=== PATIENT | female | born 1985 | race Caucasian/White ===

== ENCOUNTER 2017-03-11 21:06 | Emergency (ER) | payer OTHER ==
[2017-03-11] MEDS ORDERED: KETOROLAC 30 MG/ML 1 ML VIAL IVP STA (21:52)
[2017-03-11] MEDS ORDERED: ONDANSETRON 4 MG/2 ML VIAL IVP STA (21:53)
[2017-03-11] MEDS ORDERED: SODIUM CHLORIDE 0.9% 1,000 ML IV ONE (21:53)
--- NOTE | 2017-03-11 21:56 | ED ---
Abdominal Pain HPI - General Chief Complaint: Abdominal Pain Stated Complaint: poss kidney infection Time Seen by Provider: 03/11/17 21:40 Source: patient, RN notes reviewed Mode of arrival: ambulatory Limitations: no limitations - History of Present Illness Initial Comments: Patient is a 31-year-old female presents to the emergency room for evaluation of right-sided flank pain. Patient states the pain began earlier today. Patient states the pain is worse with movement. Patient states she's afraid she has a kidney infection. Patient denies history of kidney infection. Patient states she has a family history of kidney stones. Patient denies any personal history of kidney stones. Patient states she nauseas but denies vomiting. Patient denies any pain or burning during urination, trouble urinating or blood in urine. Patient denies fevers or chills. Patient denies headache or dizziness. Patient denies abdominal pain. Patient states she has a history of 2 sections. Patient denies any recent trauma to her back or back injury. Patient denies saddle anesthesia. Patient denies urine or fecal incontinence. Patient denies paresthesias. - Related Data Home Medications Medication Instructions Recorded Confirmed Artificial Tears-Hypromellose 1 drops BOTH EYES TID PRN 03/11/17 03/11/17 [Artificial Tear Drops] Ibuprofen [Motrin] 200 - 400 mg PO Q6HR PRN 03/11/17 03/11/17 Icy Hot Rub 1 applic TOPICAL DAILY PRN 03/11/17 03/11/17 Multivitamins, Thera [Multivitamin 1 tab PO DAILY 03/11/17 03/11/17 (formulary)] Vitamin B Complex 1 cap PO DAILY 03/11/17 03/11/17 Previous Rx's Medication Instructions Recorded Ibuprofen [Motrin] 600 mg PO Q6HR PRN #20 tab 03/12/17 Ondansetron Odt [Zofran Odt] 4 mg PO Q8HR PRN #12 tab 03/12/17 Allergies Allergy/AdvReac Type Severity Reaction Status Date / Time No Known Allergies Allergy Verified 03/11/17 22:07 Review of Systems ROS Statement: Those systems with pertinent positive or pertinent negative responses have been documented in the HPI. ROS Other: All systems not noted in ROS Statement are negative. Past Medical History Past Medical History: No Reported History History of Any Multi-Drug Resistant Organisms: None Reported Past Surgical History: Section Past Psychological History: ADD/ADHD Smoking Status: Current every day smoker Past Alcohol Use History: None Reported Past Drug Use History: None Reported General Exam - General Exam Comments Initial Comments: laying in exam room, no distress. Limitations: no limitations General appearance: alert, in no apparent distress Head exam: Present: atraumatic, normocephalic, normal inspection Eye exam: Present: normal appearance ENT exam: Present: normal exam Neck exam: Present: normal inspection Respiratory exam: Present: normal lung sounds bilaterally. Absent: respiratory distress Cardiovascular Exam: Present: regular rate, normal rhythm, normal heart sounds GI/Abdominal exam: Present: soft, normal bowel sounds. Absent: distended, tenderness, guarding, rebound, rigid Extremities exam: Present: normal inspection Back exam: Present: normal inspection, CVA tenderness (R). Absent: CVA tenderness (L) Neurological exam: Present: alert, oriented X3, CN II-XII intact, normal gait Psychiatric exam: Present: normal affect, normal mood Skin exam: Present: warm, dry, intact, normal color. Absent: rash Course Vital Signs 03/11/17 03/12/17 21:07 00:00 Temperature 99.2 F 98.2 F Pulse Rate 87 70 Respiratory 18 16 Rate Blood Pressure 141/79 116/50 O2 Sat by Pulse 100 Oximetry Medical Decision Making - Medical Decision Making patient is a 31-year-old female presents emergency room for evaluation of right- sided flank pain. Labs show no concerning findings. Urinalysis shows no concerning findings. KUB x-ray significant for nonspecific small 1 cm T-shaped metallic foreign body overlying the right lower quadrant. CT abdomen/pelvis ordered since patient still complaining of significant pain. CT abdomen/pelvis noted a small 1 cm pointed T-shaped metallic foreign body that is within the cecum. No signs of intestinal perforation seen. Patient states her pain has significantly improved. Patient did state that when she woke up this morning her lip ring was missing. Patient states that she might have swallowed her lip ring. Patient states that her lip ring is a T-shaped metal. Case was discussed with on-call surgeon Dr. Calabrese. Dr. Calabrese states that since the foreign body is in the cecum patient will probably pass it with no issues and patient can be discharged home. Patient states she understands everything that was discussed with her. Return parameters discussed. Case discussed Dr. Medrano. - Lab Data Result diagrams: 03/11/17 21:06 03/11/17 21:06 Lab Results 03/11/17 03/11/17 03/11/17 Range/Units 21:06 21:06 21:44 WBC 10.1 (3.8-10.6) k/uL RBC 4.02 (3.80-5.40) m/uL Hgb 12.8 (11.4-16.0) gm/dL Hct 35.5 (34.0-46.0) % MCV 88.2 (80.0-100.0) fL MCH 31.9 (25.0-35.0) pg MCHC 36.1 (31.0-37.0) g/dL RDW 12.8 (11.5-15.5) % Plt Count 242 (150-450) k/uL Neutrophils % 50 % Lymphocytes % 39 % Monocytes % 5 % Eosinophils % 3 % Basophils % 1 % Neutrophils # 5.1 (1.3-7.7) k/uL Lymphocytes # 3.9 (1.0-4.8) k/uL Monocytes # 0.5 (0-1.0) k/uL Eosinophils # 0.3 (0-0.7) k/uL Basophils # 0.1 (0-0.2) k/uL Sodium 138 (137-145) mmol/L Potassium 4.6 (3.5-5.1) mmol/L Chloride 107 (98-107) mmol/L Carbon Dioxide 22 (22-30) mmol/L Anion Gap 9 mmol/L BUN 14 (7-17) mg/dL Creatinine 0.73 (0.52-1.04) mg/dL Est GFR (MDRD) Af Amer >60 (>60 ml/min/1.73 sqM) Est GFR (MDRD) Non-Af >60 (>60 ml/min/1.73 sqM) Glucose 90 (74-99) mg/dL Calcium 9.7 (8.4-10.2) mg/dL Total Bilirubin 0.4 (0.2-1.3) mg/dL AST 30 (14-36) U/L ALT 31 (9-52) U/L Alkaline Phosphatase 47 (38-126) U/L Total Protein 6.9 (6.3-8.2) g/dL Albumin 4.2 (3.5-5.0) g/dL Amylase 48 (30-110) U/L Lipase 79 (23-300) U/L Urine Color Urine Appearance (Clear) Urine pH (5.0-8.0) Ur Specific [place] (1.001-1.035) Urine Protein (Negative) Urine Glucose (UA) (Negative) Urine Ketones (Negative) Urine Blood (Negative) Urine Nitrite (Negative) Urine Bilirubin (Negative) Urine Urobilinogen (<2.0) mg/dL Ur Leukocyte Esterase (Negative) Urine HCG, Qual Not Detected (Not Detectd) 03/11/17 Range/Units 21:44 WBC (3.8-10.6) k/uL RBC (3.80-5.40) m/uL Hgb (11.4-16.0) gm/dL Hct (34.0-46.0) % MCV (80.0-100.0) fL MCH (25.0-35.0) pg MCHC (31.0-37.0) g/dL RDW (11.5-15.5) % Plt Count (150-450) k/uL Neutrophils % % Lymphocytes % % Monocytes % % Eosinophils % % Basophils % % Neutrophils # (1.3-7.7) k/uL Lymphocytes # (1.0-4.8) k/uL Monocytes # (0-1.0) k/uL Eosinophils # (0-0.7) k/uL Basophils # (0-0.2) k/uL Sodium (137-145) mmol/L Potassium (3.5-5.1) mmol/L Chloride (98-107) mmol/L Carbon Dioxide (22-30) mmol/L Anion Gap mmol/L BUN (7-17) mg/dL Creatinine (0.52-1.04) mg/dL Est GFR (MDRD) Af Amer (>60 ml/min/1.73 sqM) Est GFR (MDRD) Non-Af (>60 ml/min/1.73 sqM) Glucose (74-99) mg/dL Calcium (8.4-10.2) mg/dL Total Bilirubin (0.2-1.3) mg/dL AST (14-36) U/L ALT (9-52) U/L Alkaline Phosphatase (38-126) U/L Total Protein (6.3-8.2) g/dL Albumin (3.5-5.0) g/dL Amylase (30-110) U/L Lipase (23-300) U/L Urine Color Yellow Urine Appearance Clear (Clear) Urine pH 6.0 (5.0-8.0) Ur Specific [place] 1.015 (1.001-1.035) Urine Protein Negative (Negative) Urine Glucose (UA) Negative (Negative) Urine Ketones Negative (Negative) Urine Blood Negative (Negative) Urine Nitrite Negative (Negative) Urine Bilirubin Negative (Negative) Urine Urobilinogen <2.0 (<2.0) mg/dL Ur Leukocyte Esterase Negative (Negative) Urine HCG, Qual (Not Detectd) - Radiology Data Radiology results: report reviewed, image reviewed Disposition Clinical Impression: Foreign body ingestion Disposition: HOME SELF-CARE Condition: Good Instructions: Foreign Body Ingestion (ED) Additional Instructions: Please follow up with primary care provider in 1-2 days. Take ibuprofen as needed for pain. Take Zofran as needed for nausea. If any new symptom arises or symptoms worsen, return to ER as soon as possible. Prescriptions: Ibuprofen [Motrin] 600 mg PO Q6HR PRN #20 tab PRN Reason: Pain Ondansetron Odt [Zofran Odt] 4 mg PO Q8HR PRN #12 tab PRN Reason: Nausea Referrals: None,Stated [Primary Care Provider] - 1-2 days Time of Disposition: 00:28
[2017-03-11 21:59] LABS: Appearance,Urine Clear (Clear); Bilirubin,Urine Negative (Negative); Glucose,Urine (UA) Negative (Negative); Ketones,Urine Negative (Negative); Leukocyte Esterase,Urine Negative (Negative); Nitrite,Urine Negative (Negative); Protein,Urine Negative (Negative); Specific Gravity,Urine 1.015 (1.001-1.035); UA Billing (MACRO vs. MICRO) CHEM; Urobilinogen,Urine <2.0 mg/dL (<2.0)
[2017-03-11 22:05] LABS: Basophils # (A) 0.1 k/uL (0-0.2); Basophils % (A) 1 %; CH 31.2; CHCM 35.5; Eosinophils # (A) 0.3 k/uL (0-0.7); Eosinophils % (A) 3 %; HCT 35.5 % (34.0-46.0); HDW 2.63; HGB 12.8 gm/dL (11.4-16.0); Luc # (Auto) 0.24; Luc % (Auto) 2; Lymphocytes # (A) 3.9 k/uL (1.0-4.8); Lymphocytes % (A) 39 %; MCH 31.9 pg (25.0-35.0); MCHC 36.1 g/dL (31.0-37.0); MCV 88.2 fL (80.0-100.0); Mean Platelet Volume 7.5; Monocytes # (A) 0.5 k/uL (0-1.0); Monocytes % (A) 5 %; Neutrophils # (A) 5.1 k/uL (1.3-7.7); Neutrophils % (A) 50 %; RBC 4.02 m/uL (3.80-5.40); RDW 12.8 % (11.5-15.5); WBC 10.1 k/uL (3.8-10.6)
[2017-03-11 22:16] LABS: ALT 31 U/L (9-52); AST 30 U/L (14-36); Alkaline Phosphatase 47 U/L (38-126); Amylase 48 U/L (30-110); Anion Gap 9 mmol/L; Blood Urea Nitrogen 14 mg/dL (7-17); Calcium 9.7 mg/dL (8.4-10.2); Carbon Dioxide 22 mmol/L (22-30); Chloride 107 mmol/L (98-107); Glucose 90 mg/dL (74-99); Non-African American GFR(MDRD) >60 (>60 ml/min/1.73 sqM); Potassium 4.6 mmol/L (3.5-5.1); Sodium 138 mmol/L (137-145); Total Bilirubin 0.4 mg/dL (0.2-1.3); Total Protein 6.9 g/dL (6.3-8.2)
--- NOTE | 2017-03-11 22:49 | XR ---
EXAM: XR Abdomen, 1 View CLINICAL HISTORY: Reason: pain TECHNIQUE: Frontal upright views of the abdomen/pelvis. COMPARISON: No relevant prior studies available. FINDINGS: Gastrointestinal tract: Unremarkable. No dilation. No free air seen. Bones/joints: Slight rightward curvature of the lumbar spine that may in part be positional. Soft tissues: Small 1 cm metallic T-shaped structure is seen overlying the right lower quadrant. Bilateral nipple piercings.Tiny bilateral pelvic calcifications are noted, the largest on the right contains central radiolucency consistent with a phlebolith. IMPRESSION: 1. Tiny bilateral pelvic calcifications which are indeterminate, the largest of which is consistent with a phlebolith. The possibility of a distal ureter stone is not entirely excluded in appropriate clinical setting, for which further assessment by CT could be considered if clinically indicated. 2. No evidence of intestinal obstruction or free air. 3. Nonspecific small 1 cm T-shaped metallic focus/foreign body overlying the right lower quadrant.
[2017-03-11] MEDS ORDERED: HYDROmorphone 1 MG/ML 1 ML SYRINGE IVP STA (23:14)
--- NOTE | 2017-03-12 00:05 | CT ---
EXAM: CT Abdomen and Pelvis Without Intravenous Contrast CLINICAL HISTORY: Reason: Pain TECHNIQUE: Axial computed tomography images of the abdomen and pelvis without intravenous contrast. CTDI is 16.50 mGy and DLP is 814.30 mGy-cm. This CT exam was performed using one or more of the following dose reduction techniques: automated exposure control, adjustment of the mA and/or kV according to patient size, and/or use of iterative reconstruction technique. COMPARISON: Current KUB. FINDINGS: Lower thorax: No acute findings. ABDOMEN: Liver: Unremarkable. Gallbladder and bile ducts: Contracted. No calcified stones. Pancreas: Unremarkable. Spleen: Unremarkable. No splenomegaly. Adrenals: Unremarkable. No mass. Kidneys and ureters: Symmetric, without stone, hydronephrosis or hydroureter. There are scattered small bilateral pelvic calcifications which are be on the course of the ureters, consistent with phleboliths. Stomach and bowel: Again seen is the small 1 cm pointed T-shaped metallic focus, that is located dependently within the cecum, near the level of the appendiceal orifice. No obstruction. Appendix: No findings to suggest acute appendicitis. PELVIS: Bladder: Unremarkable. No stones. Reproductive: Uterus and adnexa are within normal limits on noncontrast CT. ABDOMEN and PELVIS: Intraperitoneal space: No free air. No significant fluid collection. Bones/joints: Slight rightward curvature of the mid to lower lumbar spine. No acute fracture. Mild symmetric bilateral SI joint sclerosis and vacuum phenomena which may be on a degenerative basis. Soft tissues: Unremarkable. Vasculature: No evidence of abdominal aortic aneurysm. Lymph nodes: No adenopathy seen. IMPRESSION: 1. No evidence of urinary tract stone or secondary signs of urinary tract obstruction. 2. There is again a small 1 cm pointed T-shaped metallic foreign body, that is endoluminal in location, dependently within the cecum. Correlate clinically. No associated signs of intestinal perforation seen.
[2017-03-12 00:15] VITALS: BP 116/50; PULSE 70; RESP 16; TEMP 98.2
== END 2017-03-12 00:44 | disposition home or self-care (01) ==
LOC: EC 21:06
DX: T18.8XXA Foreign body in other parts of alimentary tract, initial encounter (principal); R11.0 Nausea; F17.200 Nicotine dependence, unspecified, uncomplicated; Z79.899 Other long term (current) drug therapy
CPT/HCPCS: 99284; 96374; 96375 ×2; 96361; 36415; 80053; 82150; 83690; 85025; 81003; 81025; 74000; 74176; J2405; J1885; J1170

== ENCOUNTER 2017-04-12 16:08 | Emergency (ER) | payer OTHER ==
[2017-04-12 16:19] VITALS: BP 129/85; PULSE 114; RESP 20; TEMP 97.8
[2017-04-12] MEDS ORDERED: KETOROLAC 60 MG/2 ML VIAL IM STA (16:35)
[2017-04-12] MEDS ORDERED: ORPHENADRINE 30 MG/ML 2 ML VIAL IM STA (16:35)
--- NOTE | 2017-04-12 16:39 | ED ---
Back Pain HPI - General Chief Complaint: Back Pain/Injury Stated Complaint: Back Pain Time Seen by Provider: 04/12/17 16:21 Source: patient, RN notes reviewed Mode of arrival: ambulatory Limitations: no limitations - History of Present Illness Initial Comments: This a 31-year-old female presents emergency Department chief complaint right- sided back pain. Patient states his been progressive getting worse over the last month was seen here once and thought possible kidney stones. Patient states pain is worse with movement radiates down her right leg denies any bowel bladder incontinence or retention denies any saddle anesthesias or lower extremity paresthesias. 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 She states since getting the point where she feels that she cannot do stretching because it is too painful to lay down on the ground. She states that when she that she is laying still she has improvement in her symptoms. She denies any dysuria no hematuria. - Related Data Home Medications Medication Instructions Recorded Confirmed Artificial Tears-Hypromellose 1 drops BOTH EYES TID PRN 03/11/17 03/11/17 [Artificial Tear Drops] Ibuprofen [Motrin] 200 - 400 mg PO Q6HR PRN 03/11/17 03/11/17 Icy Hot Rub 1 applic TOPICAL DAILY PRN 03/11/17 03/11/17 Multivitamins, Thera [Multivitamin 1 tab PO DAILY 03/11/17 03/11/17 (formulary)] Vitamin B Complex 1 cap PO DAILY 03/11/17 03/11/17 Previous Rx's Medication Instructions Recorded Ibuprofen [Motrin] 600 mg PO Q6HR PRN #20 tab 03/12/17 Ondansetron Odt [Zofran Odt] 4 mg PO Q8HR PRN #12 tab 03/12/17 Cyclobenzaprine [Flexeril] 10 mg PO TID PRN #15 tab 04/12/17 Hydrocodone/Acetaminophen [[place] 1 tab PO Q6HR PRN #20 tab 04/12/17 5-325] methylPREDNISolone [Medrol Dose 4 mg PO DIRECTED #1 pack 04/12/17 Pack] Allergies Allergy/AdvReac Type Severity Reaction Status Date / Time No Known Allergies Allergy Verified 04/12/17 16:19 Review of Systems ROS Statement: Those systems with pertinent positive or pertinent negative responses have been documented in the HPI. ROS Other: All systems not noted in ROS Statement are negative. Past Medical History Past Medical History: No Reported History Additional Past Medical History / Comment(s): chronic back pain History of Any Multi-Drug Resistant Organisms: None Reported Past Surgical History: Section Past Psychological History: ADD/ADHD Smoking Status: Current every day smoker Past Alcohol Use History: None Reported Past Drug Use History: None Reported General Exam Limitations: no limitations General appearance: alert, in no apparent distress Head exam: Present: atraumatic, normocephalic, normal inspection Respiratory exam: Present: normal lung sounds bilaterally. Absent: respiratory distress, wheezes, rales, rhonchi, stridor Cardiovascular Exam: Present: regular rate, normal rhythm, normal heart sounds. Absent: systolic murmur, diastolic murmur, rubs, gallop, clicks GI/Abdominal exam: Present: soft, normal bowel sounds. Absent: distended, tenderness, guarding, rebound, rigid Extremities exam: Present: other (Lower extremity strength equal bilaterally neurovascular equal and equal warmth reflexes patella within normal limits) Back exam: Present: full ROM, tenderness (Right lumbar region), muscle spasm, paraspinal tenderness, other (Pain with right straight leg raise). Absent: vertebral tenderness Neurological exam: Present: alert, oriented X3, CN II-XII intact, reflexes normal. Absent: motor sensory deficit Course Vital Signs 04/12/17 16:17 Temperature 97.8 F Pulse Rate 114 H Respiratory 20 Rate Blood Pressure 129/85 O2 Sat by Pulse 98 Oximetry Medical Decision Making - Medical Decision Making 31-year-old female presented emergency from for right low back pain. This has been persistent over the last month slightly worsening. Patient had CT of abdomen and pelvis which showed degenerative changes of the lumbar spine. Patient pain is worse with movement she has no red flag symptoms. Patient be given IM injections of Toradol and Norflex emergency department and discharged with muscle relaxants and pain medication did discuss stretching following up with primary care physician possible physical therapy. Disposition Clinical Impression: Strain of lumbar region, Lumbar radiculopathy Disposition: HOME SELF-CARE Condition: Stable Instructions: Acute Low Back Pain (ED) Additional Instructions: Please return the emergency Department if symptoms worsen or any other concerns. Prescriptions: Cyclobenzaprine [Flexeril] 10 mg PO TID PRN #15 tab PRN Reason: Muscle Spasm Hydrocodone/Acetaminophen [[place] 5-325] 1 tab PO Q6HR PRN #20 tab PRN Reason: Pain methylPREDNISolone [Medrol Dose Pack] 4 mg PO DIRECTED #1 pack Referrals: None,Stated [Primary Care Provider] - 1-2 days Time of Disposition: 16:39
== END 2017-04-12 16:59 | disposition home or self-care (01) ==
LOC: EC 16:08
DX: S39.012A Strain of muscle, fascia and tendon of lower back, initial encounter (principal); M54.16 Radiculopathy, lumbar region; F17.200 Nicotine dependence, unspecified, uncomplicated; Z79.899 Other long term (current) drug therapy; X58.XXXA Exposure to other specified factors, initial encounter
CPT/HCPCS: 99283; 96372 ×2; J2360; J1885

== ENCOUNTER 2017-05-18 17:41 | Emergency (ER) | payer OTHER ==
[2017-05-18 17:49] VITALS: BP 128/75; PULSE 76; RESP 18; TEMP 98.1
--- NOTE | 2017-05-18 18:14 | ED ---
Extremity Problem HPI - General Chief complaint: Extremity Problem,Nontraumatic Stated complaint: rt foot pain Time Seen by Provider: 05/18/17 17:52 Source: patient, RN notes reviewed, old records reviewed Mode of arrival: ambulatory Limitations: no limitations - History of Present Illness Initial comments: 31-year-old female presents emergency Department chief complaint right foot pain. Patient reports is worse when she is standing at work. She is having this pain for 3 weeks. She reports that she wakes up with the pain is worse in the morning and night. She says it feels better when she has her shoes on. She denies any peripheral paresthesias. She has been she often in the morning feels sharp pain. Denies any traumas or anything falling on her foot. - Related Data Home Medications Medication Instructions Recorded Confirmed Ibuprofen [Motrin] 800 mg PO TID PRN 05/18/17 05/18/17 Previous Rx's Medication Instructions Recorded Dexamethasone 0.75 mg PO DAILY #12 tab 05/18/17 traMADol HCl [Ultram] 50 mg PO Q6H PRN #12 tab 05/18/17 Allergies Allergy/AdvReac Type Severity Reaction Status Date / Time No Known Allergies Allergy Verified 05/18/17 18:14 Review of Systems ROS Statement: Those systems with pertinent positive or pertinent negative responses have been documented in the HPI. ROS Other: All systems not noted in ROS Statement are negative. Past Medical History Past Medical History: No Reported History Additional Past Medical History / Comment(s): chronic back pain History of Any Multi-Drug Resistant Organisms: None Reported Past Surgical History: Section Past Psychological History: ADD/ADHD Smoking Status: Current every day smoker Past Alcohol Use History: Rare Past Drug Use History: None Reported General Exam - General Exam Comments Initial Comments: Well-appearing 31-year-old. No acute distress. Limitations: no limitations General appearance: alert Head exam: Present: atraumatic, normocephalic, normal inspection Eye exam: Present: normal appearance, PERRL, EOMI. Absent: scleral icterus, conjunctival injection, periorbital swelling ENT exam: Present: normal exam, mucous membranes moist Neck exam: Present: normal inspection. Absent: tenderness, meningismus, lymphadenopathy Respiratory exam: Present: normal lung sounds bilaterally. Absent: respiratory distress, wheezes, rales, rhonchi, stridor Cardiovascular Exam: Present: regular rate, normal rhythm, normal heart sounds. Absent: systolic murmur, diastolic murmur, rubs, gallop, clicks GI/Abdominal exam: Present: soft, normal bowel sounds. Absent: distended, tenderness, guarding, rebound, rigid Extremities exam: Present: normal inspection, full ROM, normal capillary refill. Absent: tenderness, pedal edema, joint swelling, calf tenderness Back exam: Present: normal inspection Neurological exam: Present: alert, oriented X3, CN II-XII intact Psychiatric exam: Present: normal affect, normal mood Skin exam: Present: warm, dry, intact, normal color. Absent: rash Course Vital Signs 05/18/17 17:43 Temperature 98.1 F Pulse Rate 76 Respiratory 18 Rate Blood Pressure 128/75 O2 Sat by Pulse 97 Oximetry Medical Decision Making - Medical Decision Making 31-year-old female presents emergency Department chief complaint right foot pain. Patient reports is worse when she is standing at work. She is having this pain for 3 weeks. She reports that she wakes up with the pain is worse in the morning and night. She says it feels better when she has her shoes on. Patient foot appears normal, no significant abnormalities. Patient has full range of motion, neurovacularlly intact. Xray is negative for any acute processs. Patient history seems similiar to plantar fascitis. Patient will be discharged with antiinflammatory medication, and advised to follow up with PCP and podiatry. REturn parameters discussed. Disposition Clinical Impression: Plantar fasciitis of right foot Disposition: HOME SELF-CARE Condition: Good Instructions: Plantar Fasciitis (ED) Additional Instructions: Patient has rest, ice, and elevate the foot. Patient should put him water bottle in the freezer and rolling on the plantar aspect of her foot. Patient should take the steroids and anti-inflammatory medication pain medication. Return to emergency department if any alarming signs or symptoms occur. Prescriptions: Dexamethasone 0.75 mg PO DAILY #12 tab traMADol HCl [Ultram] 50 mg PO Q6H PRN #12 tab PRN Reason: Pain Referrals: None,Stated [Primary Care Provider] - 1-2 days Natalio Madrigal DPM [STAFF PHYSICIAN] - 1-2 days Time of Disposition: 18:28
--- NOTE | 2017-05-18 18:20 | XR ---
EXAMINATION TYPE: XR foot complete RT DATE OF EXAM: 05/18/2017 COMPARISON: NONE HISTORY: Foot pain TECHNIQUE: 3 views FINDINGS: I see no fracture nor dislocation. Metatarsals are intact. There are no erosions. IMPRESSION: Negative right foot exam.
== END 2017-05-18 18:48 | disposition home or self-care (01) ==
LOC: EC 17:41
DX: M72.2 Plantar fascial fibromatosis (principal); F17.200 Nicotine dependence, unspecified, uncomplicated
CPT/HCPCS: 99284

== ENCOUNTER 2017-11-10 14:08 | Emergency (ER) | payer OTHER ==
[2017-11-10] MEDS ORDERED: MORPHINE SULFATE 4 MG/ML SYRINGE IV STA (14:47)
[2017-11-10] MEDS ORDERED: SODIUM CHLORIDE 0.9% 1,000 ML IV STA (14:47)
[2017-11-10] MEDS ORDERED: ONDANSETRON 4 MG/2 ML VIAL IVP STA (14:47)
--- NOTE | 2017-11-10 15:00 | ED ---
General Adult HPI - General Chief complaint: Abdominal Pain Stated complaint: back & abdominal pain Time Seen by Provider: 11/10/17 14:38 Source: patient Mode of arrival: ambulatory Limitations: no limitations - History of Present Illness Initial comments: 32-year-old female presents for right-sided back pain that radiates to the right lower quadrant. She states this started yesterday. She states she's had nausea vomiting. She denies any fever chills. She states she is concerned maybe her kidney. She does have a history of kidney stones in the past. She denies any cough cold like symptoms with this. She denies any significant health history. She denies any changes in urination. She was concerned due to the continued symptoms so she thought that she should be seen.Patient denies any recent fever, chills, shortness of breath, chest pain, numbness or tingling , dysuria or hematuria, constipation or diarrhea, headaches or visual changes, or any other current symptoms. - Related Data Home Medications Medication Instructions Recorded Confirmed Ibuprofen [Motrin Ib] 1,000 mg PO Q6H PRN 11/10/17 11/10/17 Previous Rx's Medication Instructions Recorded Sulfamethox-Tmp 800-160Mg [Bactrim 1 each PO Q12HR #28 tab 11/10/17 DS 800-160 mg] traMADol HCl [Ultram] 50 mg PO Q6H PRN #20 tab 11/10/17 Allergies Allergy/AdvReac Type Severity Reaction Status Date / Time No Known Allergies Allergy Verified 11/10/17 14:48 Review of Systems ROS Statement: Those systems with pertinent positive or pertinent negative responses have been documented in the HPI. ROS Other: All systems not noted in ROS Statement are negative. Past Medical History Past Medical History: No Reported History Additional Past Medical History / Comment(s): chronic back pain History of Any Multi-Drug Resistant Organisms: None Reported Past Surgical History: Section Past Psychological History: ADD/ADHD Smoking Status: Current every day smoker Past Alcohol Use History: Rare Past Drug Use History: None Reported General Exam - General Exam Comments Initial Comments: General: The patient is awake and alert, in no distress, and does not appear acutely ill. Eye: Pupils are equal, round and reactive to light, extra-ocular movements are intact; there is normal conjunctiva bilaterally. No signs of icterus. Ears, nose, mouth and throat: There are moist mucous membranes and no oral lesions. Neck: The neck is supple, there is no tenderness or JVD. Cardiovascular: There is a regular rate and rhythm. No murmur, rub or gallop is appreciated. Respiratory: Lungs are clear to auscultation, respirations are non-labored, breath sounds are equal. No wheezes, stridor, rales, or rhonchi. Gastrointestinal: Soft, non-distended, right sided abdomen without masses or organomegaly noted. There is no rebound or guarding present. Right sided CVA tenderness. Bowel sounds are unremarkable. Back: There is no tenderness to palpation in the midline. There is no obvious deformity. No rashes noted. Musculoskeletal: Normal ROM, no tenderness, There is no pedal edema. There is no calf tenderness or swelling. Sensation intact. Pulses equal bilaterally 2+. Neurological: CN II-XII intact, There are no obvious motor or sensory deficits. Coordination appears grossly intact. Speech is normal. Skin: Skin is warm and dry and no rashes or lesions are noted. Psychiatric: Cooperative, appropriate mood & affect, normal judgment. Limitations: no limitations Course Vital Signs 11/10/17 11/10/17 11/10/17 14:14 14:43 16:19 Temperature 98.5 F 98.2 F Pulse Rate 108 H 80 Respiratory 20 18 Rate Blood Pressure 181/73 137/77 127/78 O2 Sat by Pulse 100 100 Oximetry Medical Decision Making - Medical Decision Making 32-year-old female presents for right-sided abdominal pain and flank pain with a history of kidney stones. At this time patient does appear to have acute pyelonephritis. we did discuss that this could get worse and she could require admission. We discussed what to watch for. Patient stated that she understood and she is agreement this plan. She'll be discharged home.. At this time there is a minimal white count with no fever no nausea no vomiting. We did offer the patient admission however she would like to go home. This time we did discuss follow-up we discussed return parameters all questions. - Lab Data Result diagrams: 11/10/17 15:30 11/10/17 15:30 Lab Results 11/10/17 11/10/17 11/10/17 Range/Units 15:02 15:02 15:30 WBC (3.8-10.6) k/uL RBC (3.80-5.40) m/uL Hgb (11.4-16.0) gm/dL Hct (34.0-46.0) % MCV (80.0-100.0) fL MCH (25.0-35.0) pg MCHC (31.0-37.0) g/dL RDW (11.5-15.5) % Plt Count (150-450) k/uL Neutrophils % % Lymphocytes % % Monocytes % % Eosinophils % % Basophils % % Neutrophils # (1.3-7.7) k/uL Lymphocytes # (1.0-4.8) k/uL Monocytes # (0-1.0) k/uL Eosinophils # (0-0.7) k/uL Basophils # (0-0.2) k/uL Sodium 138 (137-145) mmol/L Potassium 4.5 (3.5-5.1) mmol/L Chloride 104 (98-107) mmol/L Carbon Dioxide 22 (22-30) mmol/L Anion Gap 12 mmol/L BUN 13 (7-17) mg/dL Creatinine 0.70 (0.52-1.04) mg/dL Est GFR (CKD-EPI)AfAm >90 (>60 ml/min/1.73 sqM) Est GFR (CKD-EPI)NonAf >90 (>60 ml/min/1.73 sqM) Glucose 112 H (74-99) mg/dL Plasma Lactic Acid Preet (0.7-2.0) mmol/L Calcium 9.9 (8.4-10.2) mg/dL Total Bilirubin 0.6 (0.2-1.3) mg/dL AST 21 (14-36) U/L ALT 25 (9-52) U/L Alkaline Phosphatase 62 (38-126) U/L Total Protein 7.5 (6.3-8.2) g/dL Albumin 4.4 (3.5-5.0) g/dL Amylase 45 (30-110) U/L Lipase 62 (23-300) U/L Urine Color Yellow Urine Appearance Clear (Clear) Urine pH 5.5 (5.0-8.0) Ur Specific [place] 1.021 (1.001-1.035) Urine Protein Trace H (Negative) Urine Glucose (UA) Negative (Negative) Urine Ketones Trace H (Negative) Urine Blood Negative (Negative) Urine Nitrite Negative (Negative) Urine Bilirubin Negative (Negative) Urine Urobilinogen <2.0 (<2.0) mg/dL Ur Leukocyte Esterase Negative (Negative) Urine HCG, Qual Not Detected (Not Detectd) 11/10/17 11/10/17 Range/Units 15:30 15:30 WBC 12.8 H (3.8-10.6) k/uL RBC 4.73 (3.80-5.40) m/uL Hgb 14.3 (11.4-16.0) gm/dL Hct 40.3 (34.0-46.0) % MCV 85.2 (80.0-100.0) fL MCH 30.2 (25.0-35.0) pg MCHC 35.4 (31.0-37.0) g/dL RDW 12.5 (11.5-15.5) % Plt Count 235 (150-450) k/uL Neutrophils % 68 % Lymphocytes % 22 % Monocytes % 6 % Eosinophils % 2 % Basophils % 1 % Neutrophils # 8.7 H (1.3-7.7) k/uL Lymphocytes # 2.8 (1.0-4.8) k/uL Monocytes # 0.7 (0-1.0) k/uL Eosinophils # 0.2 (0-0.7) k/uL Basophils # 0.1 (0-0.2) k/uL Sodium (137-145) mmol/L Potassium (3.5-5.1) mmol/L Chloride (98-107) mmol/L Carbon Dioxide (22-30) mmol/L Anion Gap mmol/L BUN (7-17) mg/dL Creatinine (0.52-1.04) mg/dL Est GFR (CKD-EPI)AfAm (>60 ml/min/1.73 sqM) Est GFR (CKD-EPI)NonAf (>60 ml/min/1.73 sqM) Glucose (74-99) mg/dL Plasma Lactic Acid Preet 0.8 (0.7-2.0) mmol/L Calcium (8.4-10.2) mg/dL Total Bilirubin (0.2-1.3) mg/dL AST (14-36) U/L ALT (9-52) U/L Alkaline Phosphatase (38-126) U/L Total Protein (6.3-8.2) g/dL Albumin (3.5-5.0) g/dL Amylase (30-110) U/L Lipase (23-300) U/L Urine Color Urine Appearance (Clear) Urine pH (5.0-8.0) Ur Specific [place] (1.001-1.035) Urine Protein (Negative) Urine Glucose (UA) (Negative) Urine Ketones (Negative) Urine Blood (Negative) Urine Nitrite (Negative) Urine Bilirubin (Negative) Urine Urobilinogen (<2.0) mg/dL Ur Leukocyte Esterase (Negative) Urine HCG, Qual (Not Detectd) Disposition Clinical Impression: Acute pyelonephritis Disposition: HOME SELF-CARE Condition: Stable Instructions: Kidney Infection (ED) Additional Instructions: please use medications as prescribed. Return with any nausea, vomiting or high fever or any changing in symptoms. Follow up with PCP. Prescriptions: Sulfamethox-Tmp 800-160Mg [Bactrim DS 800-160 mg] 1 each PO Q12HR #28 tab traMADol HCl [Ultram] 50 mg PO Q6H PRN #20 tab PRN Reason: Pain Referrals: Cholo Gonzales MD [REFERRING] - 1-2 days Time of Disposition: 16:36
[2017-11-10 15:05] LABS: Appearance,Urine Clear (Clear); Bilirubin,Urine Negative (Negative); Blood,Urine Negative (Negative); Color,Urine Yellow; Glucose,Urine (UA) Negative (Negative); Ketones,Urine Trace (Negative); Leukocyte Esterase,Urine Negative (Negative); PH, Urine 5.5 (5.0-8.0); Protein,Urine Trace (Negative); Specific Gravity,Urine 1.021 (1.001-1.035); Urobilinogen,Urine <2.0 mg/dL (<2.0)
[2017-11-10] MEDS ORDERED: RX INFO: IV CONTRAST WAS GIVEN 1 EACH MISC MISCELLANE PRN (15:09)
[2017-11-10 15:47] LABS: Basophils # (A) 0.1 k/uL (0-0.2); Basophils % (A) 1 %; Eosinophils # (A) 0.2 k/uL (0-0.7); Eosinophils % (A) 2 %; HCT 40.3 % (34.0-46.0); HGB 14.3 gm/dL (11.4-16.0); Lymphocytes # (A) 2.8 k/uL (1.0-4.8); Lymphocytes % (A) 22 %; MCH 30.2 pg (25.0-35.0); MCHC 35.4 g/dL (31.0-37.0); MCV 85.2 fL (80.0-100.0); Mean Platelet Volume 7.4; Monocytes # (A) 0.7 k/uL (0-1.0); Monocytes % (A) 6 %; Neutrophils # (A) 8.7 k/uL (1.3-7.7); Neutrophils % (A) 68 %; Platelet Count 235 k/uL (150-450); RBC 4.73 m/uL (3.80-5.40); RDW 12.5 % (11.5-15.5); WBC 12.8 k/uL (3.8-10.6)
[2017-11-10 15:51] LABS: ALT 25 U/L (9-52); AST 21 U/L (14-36); Albumin 4.4 g/dL (3.5-5.0); Alkaline Phosphatase 62 U/L (38-126); Amylase 45 U/L (30-110); Anion Gap 12 mmol/L; Blood Urea Nitrogen 13 mg/dL (7-17); Calcium 9.9 mg/dL (8.4-10.2); Carbon Dioxide 22 mmol/L (22-30); Chloride 104 mmol/L (98-107); Glucose 112 mg/dL (74-99); Lipase 62 U/L (23-300); Potassium 4.5 mmol/L (3.5-5.1); Sodium 138 mmol/L (137-145); Total Bilirubin 0.6 mg/dL (0.2-1.3); Total Protein 7.5 g/dL (6.3-8.2)
--- NOTE | 2017-11-10 16:02 | CT ---
EXAMINATION TYPE: CT abdomen pelvis w con DATE OF EXAM: 11/10/2017 COMPARISON: Prior CT 03/11/2017 HISTORY: Right sided back pain CT DLP: 1515 mGycm Automated exposure control for dose reduction was used. TECHNIQUE: Helical acquisition of images from the lung bases through the pelvis have been completed. CONTRAST: Performed without Oral Contrast and with IV Contrast, patient injected with 100 mL of Omnipaque 300. FINDINGS: LUNG BASES: No significant abnormality is appreciated. AORTA: No significant abnormality is appreciated. LIVER/GB: Liver is somewhat enlarged.. PANCREAS: No significant abnormality is seen. SPLEEN: No significant abnormality is seen. ADRENALS: No significant abnormality is seen. KIDNEYS: The right kidney shows a heterogeneous area of enhancement, ill-defined mixed density in the mid to lower pole measuring approximately 2.5 x 2.8 x 2.2 cm in size. There is some obscured appeara nce to the cortical medullary differentiation at this level, striated nephrogram suspected on delayed imaging. Hypodense focus is also present at the lower pole more anteriorly which is indeterminate an d measures only 7 to 8 mm in size. There is no hydronephrosis or calculus present bilaterally. No ure teral calculus is seen. REPRODUCTIVE ORGANS: Findings suggest bilateral ovarian cysts right greater than left. BOWEL: No significant abnormality is seen. FREE AIR: No Free Air visible. ASCITES: None visible. PELVIC ADENOPATHY: None visualized. RETROPERITONEAL ADENOPATHY: No Retroperitoneal Adenopathy visible. URINARY BLADDER: No significant abnormality is seen. OSSEOUS STRUCTURES: Sclerosis of the sacroiliac joints may be due to some local stress change, quest ion some mild osteoarthritic change in the right hip. IMPRESSION: CORRELATE FOR PYELONEPHRITIS ON THE RIGHT, FOLLOW-UP IS SUGGESTED. Additional findings above.
[2017-11-10] MEDS ORDERED: cefTRIAXone IN SWFI 2,000 MG/20 ML SYRINGE IVP STA (16:05)
[2017-11-10] MEDS ORDERED: KETOROLAC 30 MG/ML 1 ML VIAL IVP STA (16:09)
[2017-11-10 16:20] VITALS: BP 127/78; PULSE 80; RESP 18; TEMP 98.2
== END 2017-11-10 16:47 | disposition home or self-care (01) ==
LOC: EC 14:08
DX: N10 Acute pyelonephritis (principal); F17.200 Nicotine dependence, unspecified, uncomplicated; Z87.442 Personal history of urinary calculi
CPT/HCPCS: 36415; 80053; 82150; 83605; 83690; 85025; 81003; 81025; 87040; 87086; 74177; 99284; 96374; 96375 ×3; 96361; J2270; J2405; J0696; J1885; Q9967; 87077; 87186

== ENCOUNTER 2017-12-14 18:13 | Inpatient (IN) | payer OTHER ==
[2017-12-14] MEDS ORDERED: SODIUM CHLORIDE 0.9% 2,000 ML IV STA (18:43)
[2017-12-14] MEDS ORDERED: RX INFO: IV CONTRAST WAS GIVEN 1 EACH MISC MISCELLANE PRN (18:43)
[2017-12-14] MEDS ORDERED: MORPHINE SULFATE 4MG/4ML SYRG IVP STA (19:16)
[2017-12-14] MEDS ORDERED: ONDANSETRON 4 MG/2 ML VIAL IVP STA (19:16)
[2017-12-14] MEDS ORDERED: ACETAMINOPHEN TAB 325 MG TAB PO STA (19:16)
[2017-12-14] MEDS ORDERED: KETOROLAC 30 MG/ML 1 ML VIAL IVP STA (19:16)
--- NOTE | 2017-12-14 19:21 | ED ---
Abdominal Pain HPI - General Chief Complaint: Abdominal Pain Stated Complaint: POSS KIDNEY INFECTION Time Seen by Provider: 12/14/17 18:42 Source: patient, RN notes reviewed Mode of arrival: wheelchair Limitations: no limitations - History of Present Illness Initial Comments: This is a 32-year-old female presents emergency Department chief complaint of back pain. Patient states started a few days ago has progressively gotten worse. She notes that she had a fever at home is concerned that she was here proximal one month ago for pyelonephritis. She states she took antibiotics at home and having cleared up. She has noticed her urine has been more dark than usual but states that she has no dysuria or hematuria. Patient states the pain is not localize the right or left states bilateral she has mid to some nausea no vomiting no diarrhea no constipation. She's been trying some over-the- counter pain medication with no relief. She has not taken any recent Tylenol Motrin no. She's had prior sections no other abdominal surgeries states that she does have chronic back pain had injections in 2004 nothing recent. - Related Data Home Medications Medication Instructions Recorded Confirmed No Known Home Medications [No 12/14/17 12/14/17 Known Home Medications] Allergies Allergy/AdvReac Type Severity Reaction Status Date / Time No Known Allergies Allergy Verified 12/14/17 19:07 Review of Systems ROS Statement: Those systems with pertinent positive or pertinent negative responses have been documented in the HPI. ROS Other: All systems not noted in ROS Statement are negative. Past Medical History Past Medical History: No Reported History Additional Past Medical History / Comment(s): chronic back pain History of Any Multi-Drug Resistant Organisms: None Reported Past Surgical History: Section Past Psychological History: ADD/ADHD Smoking Status: Current every day smoker Past Alcohol Use History: Rare Past Drug Use History: None Reported General Exam Limitations: no limitations General appearance: alert, in no apparent distress Head exam: Present: atraumatic, normocephalic, normal inspection Eye exam: Present: normal appearance, PERRL, EOMI. Absent: scleral icterus, conjunctival injection, periorbital swelling ENT exam: Present: normal exam, normal oropharynx, mucous membranes moist Neck exam: Present: normal inspection. Absent: tenderness, meningismus, lymphadenopathy Respiratory exam: Present: normal lung sounds bilaterally. Absent: respiratory distress, wheezes, rales, rhonchi, stridor Cardiovascular Exam: Present: normal rhythm, tachycardia, normal heart sounds. Absent: systolic murmur, diastolic murmur, rubs, gallop, clicks GI/Abdominal exam: Present: soft, normal bowel sounds. Absent: distended, tenderness, guarding, rebound, rigid Back exam: Absent: CVA tenderness (R), CVA tenderness (L) Skin exam: Present: warm, dry, intact, normal color. Absent: rash Course Vital Signs 12/14/17 12/14/17 18:31 21:24 Temperature 103.1 F H 99.5 F Pulse Rate 144 H 92 Respiratory 18 18 Rate Blood Pressure 128/90 102/59 O2 Sat by Pulse 98 100 Oximetry Medical Decision Making - Lab Data Result diagrams: 12/14/17 19:42 12/14/17 19:42 Lab Results 12/14/17 12/14/17 12/14/17 Range/Units 19:42 19:42 19:42 WBC 17.2 H (3.8-10.6) k/uL RBC 4.92 (3.80-5.40) m/uL Hgb 14.3 (11.4-16.0) gm/dL Hct 41.9 (34.0-46.0) % MCV 85.0 (80.0-100.0) fL MCH 29.0 (25.0-35.0) pg MCHC 34.1 (31.0-37.0) g/dL RDW 12.5 (11.5-15.5) % Plt Count 217 (150-450) k/uL Neutrophils % 79 % Lymphocytes % 13 % Monocytes % 6 % Eosinophils % 1 % Basophils % 0 % Neutrophils # 13.5 H (1.3-7.7) k/uL Lymphocytes # 2.3 (1.0-4.8) k/uL Monocytes # 1.1 H (0-1.0) k/uL Eosinophils # 0.1 (0-0.7) k/uL Basophils # 0.1 (0-0.2) k/uL Sodium 139 (137-145) mmol/L Potassium 4.1 (3.5-5.1) mmol/L Chloride 100 (98-107) mmol/L Carbon Dioxide 21 L (22-30) mmol/L Anion Gap 18 mmol/L BUN 11 (7-17) mg/dL Creatinine 0.90 (0.52-1.04) mg/dL Est GFR (CKD-EPI)AfAm >90 (>60 ml/min/1.73 sqM) Est GFR (CKD-EPI)NonAf 85 (>60 ml/min/1.73 sqM) Glucose 107 H (74-99) mg/dL Plasma Lactic Acid Preet 1.1 (0.7-2.0) mmol/L Calcium 10.0 (8.4-10.2) mg/dL Total Bilirubin 0.8 (0.2-1.3) mg/dL AST 17 (14-36) U/L ALT 16 (9-52) U/L Alkaline Phosphatase 64 (38-126) U/L Total Protein 7.8 (6.3-8.2) g/dL Albumin 4.6 (3.5-5.0) g/dL Amylase 46 (30-110) U/L Lipase 36 (23-300) U/L Urine Color Urine Appearance (Clear) Urine pH (5.0-8.0) Ur Specific [place] (1.001-1.035) Urine Protein (Negative) Urine Glucose (UA) (Negative) Urine Ketones (Negative) Urine Blood (Negative) Urine Nitrite (Negative) Urine Bilirubin (Negative) Urine Urobilinogen (<2.0) mg/dL Ur Leukocyte Esterase (Negative) Urine RBC (0-5) /hpf Urine WBC (0-5) /hpf Ur Squamous Epith Cells (0-4) /hpf Urine Bacteria (None) /hpf Urine Mucus (None) /hpf Urine HCG, Qual (Not Detectd) 12/14/17 12/14/17 Range/Units 21:19 21:19 WBC (3.8-10.6) k/uL RBC (3.80-5.40) m/uL Hgb (11.4-16.0) gm/dL Hct (34.0-46.0) % MCV (80.0-100.0) fL MCH (25.0-35.0) pg MCHC (31.0-37.0) g/dL RDW (11.5-15.5) % Plt Count (150-450) k/uL Neutrophils % % Lymphocytes % % Monocytes % % Eosinophils % % Basophils % % Neutrophils # (1.3-7.7) k/uL Lymphocytes # (1.0-4.8) k/uL Monocytes # (0-1.0) k/uL Eosinophils # (0-0.7) k/uL Basophils # (0-0.2) k/uL Sodium (137-145) mmol/L Potassium (3.5-5.1) mmol/L Chloride (98-107) mmol/L Carbon Dioxide (22-30) mmol/L Anion Gap mmol/L BUN (7-17) mg/dL Creatinine (0.52-1.04) mg/dL Est GFR (CKD-EPI)AfAm (>60 ml/min/1.73 sqM) Est GFR (CKD-EPI)NonAf (>60 ml/min/1.73 sqM) Glucose (74-99) mg/dL Plasma Lactic Acid Preet (0.7-2.0) mmol/L Calcium (8.4-10.2) mg/dL Total Bilirubin (0.2-1.3) mg/dL AST (14-36) U/L ALT (9-52) U/L Alkaline Phosphatase (38-126) U/L Total Protein (6.3-8.2) g/dL Albumin (3.5-5.0) g/dL Amylase (30-110) U/L Lipase (23-300) U/L Urine Color Yellow Urine Appearance Cloudy H (Clear) Urine pH 6.0 (5.0-8.0) Ur Specific [place] 1.020 (1.001-1.035) Urine Protein 1+ H (Negative) Urine Glucose (UA) Negative (Negative) Urine Ketones Negative (Negative) Urine Blood Trace H (Negative) Urine Nitrite Negative (Negative) Urine Bilirubin Negative (Negative) Urine Urobilinogen 2.0 (<2.0) mg/dL Ur Leukocyte Esterase Moderate H (Negative) Urine RBC 8 H (0-5) /hpf Urine WBC 36 H (0-5) /hpf Ur Squamous Epith Cells 6 H (0-4) /hpf Urine Bacteria Moderate H (None) /hpf Urine Mucus Rare H (None) /hpf Urine HCG, Qual Not Detected (Not Detectd) Disposition Clinical Impression: Pyelonephritis, Leukocytosis, Abdominal pain Disposition: ADMITTED IP TO THIS HOSP Condition: Fair Referrals: Sasha Barahona MD [Primary Care Provider] - 1-2 days
[2017-12-14 20:14] LABS: Basophils # (A) 0.1 k/uL (0-0.2); Basophils % (A) 0 %; Eosinophils # (A) 0.1 k/uL (0-0.7); Eosinophils % (A) 1 %; HCT 41.9 % (34.0-46.0); HGB 14.3 gm/dL (11.4-16.0); Lymphocytes # (A) 2.3 k/uL (1.0-4.8); Lymphocytes % (A) 13 %; MCHC 34.1 g/dL (31.0-37.0); Mean Platelet Volume 7.9; Monocytes # (A) 1.1 k/uL (0-1.0); Monocytes % (A) 6 %; Neutrophils # (A) 13.5 k/uL (1.3-7.7); Neutrophils % (A) 79 %; Platelet Count 217 k/uL (150-450); RBC 4.92 m/uL (3.80-5.40); RDW 12.5 % (11.5-15.5); WBC 17.2 k/uL (3.8-10.6)
[2017-12-14 20:17] LABS: ALT 16 U/L (9-52); AST 17 U/L (14-36); Albumin 4.6 g/dL (3.5-5.0); Alkaline Phosphatase 64 U/L (38-126); Amylase 46 U/L (30-110); Anion Gap 18 mmol/L; Blood Urea Nitrogen 11 mg/dL (7-17); Carbon Dioxide 21 mmol/L (22-30); Chloride 100 mmol/L (98-107); Glucose 107 mg/dL (74-99); Lipase 36 U/L (23-300); Potassium 4.1 mmol/L (3.5-5.1); Sodium 139 mmol/L (137-145); Total Bilirubin 0.8 mg/dL (0.2-1.3); Total Protein 7.8 g/dL (6.3-8.2)
[2017-12-14 21:44] LABS: Appearance,Urine Cloudy (Clear); Bacteria,Urine Moderate /hpf; Bilirubin,Urine Negative (Negative); Blood,Urine Trace (Negative); Color,Urine Yellow; Glucose,Urine (UA) Negative (Negative); Ketones,Urine Negative (Negative); Leukocyte Esterase,Urine Moderate (Negative); Mucus,Urine Rare /hpf; Nitrite,Urine Negative (Negative); Protein,Urine 1+ (Negative); RBC,Urine 8 /hpf (0-5); Squamous Epithelial Cell,Urine 6 /hpf (0-4); WBC,Urine 36 /hpf (0-5)
--- NOTE | 2017-12-14 22:24 | CT ---
EXAMINATION TYPE: CT abdomen pelvis w con DATE OF EXAM: 12/14/2017 COMPARISON: 11/10/2017 HISTORY: Back and abd pain. CT DLP: 834.1 mGycm Automated exposure control for dose reduction was used. TECHNIQUE: Helical acquisition of images was performed from the lung bases through the pelvis. CONTRAST: Performed without Oral Contrast and with IV Contrast, patient injected with 100ml mL of Isovue M300. FINDINGS: Lung bases show no pulmonary consolidation. There is no pleural effusion. Heart size is normal. There is no pericardial effusion. Liver shows no focal defect. Spleen measures 12 cm. There is no pancreatic mass. Gallbladder appears normal. There is no adrenal mass. There is a 1 cm area of cortical hypodensity in the medial right kidney. Th ere is a similar focus on the posterior lateral right kidney. There is also a irregular shaped simila r area on the posterior right kidney. There is no hydronephrosis. Bile ducts are not dilated. There is no retroperitoneal adenopathy. There is no ascites. Appendix appears normal. I see no intest inal wall thickening. There are no dilated loops. Bladder is almost empty. I see no pelvic mass. Ther e is no free fluid in the pelvis. I see no bony destructive process. THE DELAYED IMAGES SHOW PATCHY AREAS OF DECREASED CORTICAL DENSITY IN THE RIGHT KIDNEY. LEFT KIDNEY S HOWS NORMAL CONTRAST DENSITY. CONCLUSION: Multiple areas of hypodensity on the delayed images in the right kidney consistent with multifocal ri ght-sided pyelonephritis. There are new foci of abnormality compared to old exam. No evidence of tianna l abscess.
[2017-12-14] MEDS ORDERED: cefTRIAXone IN SWFI 1,000 MG/10 ML SYRINGE IVP STA (22:28)
[2017-12-14] MEDS ORDERED: cefTRIAXone IN SWFI 2,000 MG/20 ML SYRINGE IVP STA (22:29)
[2017-12-14] MEDS ORDERED: ONDANSETRON 4 MG/2 ML VIAL IVP PRN (22:31)
[2017-12-14] MEDS ORDERED: ACETAMINOPHEN TAB 325 MG TAB PO PRN (22:31)
[2017-12-14] MEDS ORDERED: KETOROLAC 30 MG/ML 1 ML VIAL IVP PRN (22:31)
[2017-12-14] MEDS ORDERED: NALOXONE 0.4 MG/ML 1 ML VIAL IV PRN (22:31)
[2017-12-14] MEDS: SODIUM CHLORIDE 0.9% 1,000 ML IV SCH (22:55)
[2017-12-14 23:33] VITALS: BMI 30.7
[2017-12-15] MEDS: MORPHINE ORAL SOLN 10 MG/5 ML CUP PO PRN ×4 (00:28→20:28)
[2017-12-15] MEDS: cefTRIAXone IN SWFI 1,000 MG/10 ML SYRINGE IVP SCH ×2 (08:50→21:32)
[2017-12-15] MEDS: SODIUM CHLORIDE 0.9% 1,000 ML IV SCH ×3 (08:50→20:20)
[2017-12-16] MEDS: MORPHINE ORAL SOLN 10 MG/5 ML CUP PO PRN ×5 (00:56→22:32)
--- NOTE | 2017-12-16 01:04 | P.HPIM ---
History of Present Illness H&P Date: 12/15/17 Chief Complaint: Flank pain with fever and chills Patient is a 30-year-old female with dementia asthma and chronic back pain came to ER with complaints of right flank pain worsening for the past 2 days. Patient recently had urinary tract infection about 2 months ago which has resolved with antibiotics in the form of Bactrim at the time. Patient also says that she noticed her urine has been more dark than usual. Otherwise patient denied any dysuria or hematuria. Patient does have bilateral flank pain on admission. Patient did have nausea. No ulcers of vomiting. No diarrhea. No recent illnesses or sick contacts. She's had prior sections no other abdominal surgeries states that she does have chronic back pain had injections in 2004 nothing recent. Patient was febrile on admission with T-max of 103.2 WBC 17 T abdominal and pelvis showed multiple areas of hypodensity and delayed images in the right kidney consistent with multifocal right-sided pyelonephritis Review of Systems Constitutional: Patient denies any fever or chills . No generalized weakness or weight loss. Abdomen: Bilateral flank pain and dark urine. Patient does have nausea. No vomiting or abdominal pain. Cardiovascular: Patient denies any chest pain or short of breath no palpitations. Respiratory: patient denied any cough is from production. No shortness of breath Neurologic: Patient denied any numbness or tingling headache. Musculoskeletal: Patient denies any complaints of joint swelling or deformity. Skin: Negative Psychiatric: Negative Endocrine: No heat or cold intolerance. No recent weight gain. Genitourinary: No dysuria or hematuria. All other 14 point ROS negative except the above Past Medical History Past Medical History: Asthma Additional Past Medical History / Comment(s): chronic back pain History of Any Multi-Drug Resistant Organisms: None Reported Past Surgical History: Section Past Anesthesia/Blood Transfusion Reactions: No Reported Reaction Past Psychological History: ADD/ADHD Smoking Status: Current every day smoker Past Alcohol Use History: Rare Past Drug Use History: None Reported - Past Family History Sister(s) Family Medical History: Cancer, Diabetes Mellitus Additional Family Medical History / Comment(s): Diabetes type 1, cervical and pancreatic cancer Mother Family Medical History: Myocardial Infarction (MS) Additional Family Medical History / Comment(s): Bipolar Medications and Allergies Home Medications Medication Instructions Recorded Confirmed Type No Known Home Medications [No 12/14/17 12/14/17 History Known Home Medications] Allergies Allergy/AdvReac Type Severity Reaction Status Date / Time No Known Allergies Allergy Verified 12/14/17 19:07 Physical Exam Vitals: Vital Signs Temp Pulse Pulse Resp BP BP Pulse Ox 12/15/17 11:40 98.4 F 94 20 113/76 100 12/15/17 07:36 97.8 F 93 16 94/54 97 12/15/17 06:36 98.7 F 12/14/17 23:18 97.5 F L 89 16 93/65 99 12/14/17 22:56 98.6 F 91 18 96/49 97 12/14/17 21:24 99.5 F 92 18 102/59 100 12/14/17 18:31 103.1 F H 144 H 18 128/90 98 Intake and Output 12/14/17 12/15/17 12/15/17 22:59 06:59 14:59 Intake Total 150 Output Total 350 200 Balance -350 -50 Intake: Oral 150 Output: Urine 350 200 Other: Voiding Method Toilet Toilet # Voids 1 Weight 90.718 kg 91.7 kg PHYSICAL EXAMINATION: Patient is lying in the bed comfortably, no acute distress, awake alert and oriented.. HEENT: Normocephalic. Neck is supple. Pupils reactive. Nostrils clear. Oral cavity is moist. Ears reveal no drainage. Neck reveals no JVD, carotid bruits, or thyromegaly. CHEST EXAMINATION: Trachea is central. Symmetrical expansion. Lung carl clear to auscultation and percussion. CARDIAC: Normal S1, S2 with no gallops. No murmurs ABDOMEN: Soft. Mild right flank tenderness Bowel sounds normal. No organomegaly. No abdominal bruits. Extremities: reveal no edema. No clubbing or cyanosis Neurologically awake, alert, oriented x3 with well-coordinated movements. No focal deficits noted Skin: No rash or skin lesions. Psychiatric: Coperative. Nonsuicidal Musculoskeletal: No joint swelling or deformity. Normal range of motion. Results CBC & Chem 7: 12/14/17 19:42 12/14/17 19:42 Labs: Abnormal Lab Results - Last 24 Hours (Table) 12/14/17 12/14/17 12/14/17 Range/Units 19:42 19:42 21:19 WBC 17.2 H (3.8-10.6) k/uL Neutrophils # 13.5 H (1.3-7.7) k/uL Monocytes # 1.1 H (0-1.0) k/uL Carbon Dioxide 21 L (22-30) mmol/L Glucose 107 H (74-99) mg/dL Urine Appearance Cloudy H (Clear) Urine Protein 1+ H (Negative) Urine Blood Trace H (Negative) Ur Leukocyte Esterase Moderate H (Negative) Urine RBC 8 H (0-5) /hpf Urine WBC 36 H (0-5) /hpf Ur Squamous Epith Cells 6 H (0-4) /hpf Urine Bacteria Moderate H (None) /hpf Urine Mucus Rare H (None) /hpf Microbiology - Last 24 Hours (Table) 12/14/17 21:19 Urine Culture - Preliminary Urine,Voided Thrombosis Risk Factor Assmnt - DVT/VTE Prophylaxis DVT/VTE Prophylaxis: Pharmacologic Prophylaxis ordered - Choose All That Apply Any of the Below Risk Factors Present?: Yes Each Factor Represents 1 point: Obesity (BMI >25) Other Risk Factors: No Thrombosis Risk Factor Assessment Total Risk Factor Score: 1 Thrombosis Risk Factor Assessment Level: Low Risk Assessment and Plan Assessment: Flank pain due to Acute pyelonephritis. Right-sided as per CT pelvis Sepsis secondary to acute pyelonephritis. Patient has fever and leukocytosis and tachycardia Asthma stable Chronic back pain controlled with pain medications DVT prophylaxis Plan: Patient will be continued on IV fluids and antibiotics in the form of ceftriaxone. We will follow blood cultures and urine cultures. And continue to follow closely symptomatic management for pain further recommendations based on the clinical course. Time with Patient: Greater than 30
[2017-12-16] MEDS: SODIUM CHLORIDE 0.9% 1,000 ML IV SCH ×3 (04:17→23:51)
[2017-12-16 07:44] LABS: Basophils % (A) 0 %; Eosinophils # (A) 0.2 k/uL (0-0.7); Eosinophils % (A) 3 %; HCT 30.8 % (34.0-46.0); Lymphocytes # (A) 1.6 k/uL (1.0-4.8); Lymphocytes % (A) 23 %; MCH 29.6 pg (25.0-35.0); MCHC 33.7 g/dL (31.0-37.0); MCV 87.9 fL (80.0-100.0); Monocytes # (A) 0.5 k/uL (0-1.0); Monocytes % (A) 7 %; Neutrophils # (A) 4.5 k/uL (1.3-7.7); Neutrophils % (A) 65 %; Platelet Count 142 k/uL (150-450); RDW 12.6 % (11.5-15.5); WBC 6.9 k/uL (3.8-10.6)
[2017-12-16 07:46] LABS: HGB 10.4 gm/dL (11.4-16.0)
[2017-12-16] MEDS: HEPARIN SODIUM,PORCINE 5,000 UNIT/ML 1 ML VIAL SQ SCH ×2 (08:05→15:57)
[2017-12-16] MEDS: cefTRIAXone IN SWFI 1,000 MG/10 ML SYRINGE IVP SCH ×2 (08:08→20:25)
[2017-12-16 08:10] LABS: Anion Gap 12 mmol/L; Blood Urea Nitrogen 5 mg/dL (7-17); Calcium 8.1 mg/dL (8.4-10.2); Carbon Dioxide 19 mmol/L (22-30); Chloride 107 mmol/L (98-107); Glucose 118 mg/dL (74-99); Sodium 138 mmol/L (137-145)
[2017-12-16] MEDS ORDERED: ACETAMINOPHEN TAB 500 MG TAB PO PRN (15:40)
[2017-12-16] MEDS: HYDROcodone/APAP 5-325MG 1 EACH TAB PO PRN (20:24)
--- NOTE | 2017-12-16 22:14 | P.PN ---
Subjective Progress Note Date: 12/16/17 Principal diagnosis: Acute pyelonephritis Patient is a 30-year-old female with dementia asthma and chronic back pain came to ER with complaints of right flank pain worsening for the past 2 days. Patient recently had urinary tract infection about 2 months ago which has resolved with antibiotics in the form of Bactrim at the time. Patient also says that she noticed her urine has been more dark than usual. Otherwise patient denied any dysuria or hematuria. Patient does have bilateral flank pain on admission. Patient did have nausea. No ulcers of vomiting. No diarrhea. No recent illnesses or sick contacts. She's had prior sections no other abdominal surgeries states that she does have chronic back pain had injections in 2004 nothing recent. Patient was febrile on admission with T-max of 103.2 WBC 17 T abdominal and pelvis showed multiple areas of hypodensity and delayed images in the right kidney consistent with multifocal right-sided pyelonephritis 12/16/2017 Patient denied any nausea or vomiting. Still having right flank pain. No fever no chills. Leukocytosis improved. Urine culture showed gram-negative bacilli and final urine culture report is awaiting at this time. Patient is being continued on ceftriaxone. No complaints of chest pain or shortness of breath. No nausea vomiting. Tolerating oral diet. All other review of systems negative except the above Active Medications Generic Name Dose Route Start Last Admin Trade Name Freq PRN Reason Stop Dose Admin Acetaminophen 1,000 mg 12/16/17 15:40 12/16/17 15:55 Tylenol Tab PO 1,000 mg Q6HR PRN Administration Fever and/ or Pain Hydrocodone Bitart/Acetaminophen 1 each 12/14/17 22:31 12/16/17 20:24 [place] 5-325 PO 1 each Q4HR PRN Administration Moderate Pain Ceftriaxone Sodium 1,000 mg 12/15/17 09:00 12/16/17 20:25 Rocephin IVP 1,000 mg Q12HR JOJO Administration Heparin Sodium (Porcine) 5,000 unit 12/16/17 08:00 12/16/17 15:57 Heparin SQ 5,000 unit Q8HR JOJO Administration Sodium Chloride 1,000 mls @ 100 mls/hr 12/14/17 22:45 12/16/17 14:43 Saline 0.9% IV 100 mls/hr .Q10H JOJO Administration Morphine Sulfate 12 mg 12/14/17 22:31 12/16/17 18:09 Morphine Oral Mandy 2mg/Ml PO 12 mg Q4HR PRN Administration Severe Pain Naloxone HCl 0.2 mg 12/14/17 22:31 Narcan IV Q2M PRN Opioid Reversal Ondansetron HCl 4 mg 12/14/17 22:31 Zofran IVP Q8HR PRN Nausea And Vomiting Objective - Vital Signs Vital signs: Vital Signs Temp 98.6 F 12/16/17 16:54 Pulse 95 12/16/17 16:54 Resp 20 12/16/17 16:54 BP 92/56 12/16/17 16:54 Pulse Ox 98 12/16/17 16:54 Intake & Output 12/15/17 12/16/17 12/16/17 18:59 06:59 18:59 Intake Total 150 Output Total 350 400 Balance -200 -400 Intake: Oral 150 Output: Urine 350 400 Other: Voiding Method Toilet Toilet Toilet # Voids 1 1 3 - Exam PHYSICAL EXAMINATION: Patient is lying in the bed comfortably, no acute distress, awake alert and oriented.. HEENT: Normocephalic. Neck is supple. Pupils reactive. Nostrils clear. Oral cavity is moist. Ears reveal no drainage. Neck reveals no JVD, carotid bruits, or thyromegaly. CHEST EXAMINATION: Trachea is central. Symmetrical expansion. Lung carl clear to auscultation and percussion. CARDIAC: Normal S1, S2 with no gallops. No murmurs ABDOMEN: Soft. Bowel sounds normal. No organomegaly. No abdominal bruits. Extremities: reveal no edema. No clubbing or cyanosis Neurologically awake, alert, oriented x3 with well-coordinated movements. No focal deficits noted Skin: No rash or skin lesions. Psychiatric: Coperative. Nonsuicidal Musculoskeletal: No joint swelling or deformity. Normal range of motion. - Labs CBC & Chem 7: 12/16/17 06:37 12/16/17 06:37 Labs: Abnormal Lab Results - Last 24 Hours (Table) 12/16/17 12/16/17 Range/Units 06:37 06:37 RBC 3.50 L (3.80-5.40) m/uL Hgb 10.4 L D (11.4-16.0) gm/dL Hct 30.8 L (34.0-46.0) % Plt Count 142 L (150-450) k/uL Carbon Dioxide 19 L (22-30) mmol/L BUN 5 L (7-17) mg/dL Glucose 118 H (74-99) mg/dL Calcium 8.1 L (8.4-10.2) mg/dL Microbiology - Last 24 Hours (Table) 12/14/17 21:19 Urine Culture - Preliminary Urine,Voided Gram Neg Bacilli 12/14/17 19:42 Blood Culture - Preliminary Blood No Growth after 24 hours Assessment and Plan Assessment: Flank pain due to Acute pyelonephritis. Right-sided as per CT pelvis Gram-negative bacilli UTI Sepsis secondary to acute pyelonephritis. Patient has fever and leukocytosis and tachycardia Asthma stable Chronic back pain controlled with pain medications DVT prophylaxis Plan: Patient will be continued on IV fluids and antibiotics in the form of ceftriaxone. We will follow blood cultures and urine cultures. And continue to follow closely symptomatic management for pain further recommendations based on the clinical course. Time with Patient: Greater than 30
[2017-12-17] MEDS: HEPARIN SODIUM,PORCINE 5,000 UNIT/ML 1 ML VIAL SQ SCH ×2 (00:27→08:19)
[2017-12-17] MEDS: HYDROcodone/APAP 5-325MG 1 EACH TAB PO PRN ×3 (00:27→15:05)
[2017-12-17] MEDS: MORPHINE ORAL SOLN 10 MG/5 ML CUP PO PRN ×2 (06:36→12:01)
[2017-12-17] MEDS: cefTRIAXone IN SWFI 1,000 MG/10 ML SYRINGE IVP SCH (08:19)
[2017-12-17 13:34] VITALS: BP 89/59; PULSE 72; RESP 18; TEMP 98.1
--- NOTE | 2017-12-18 00:10 | P.DS ---
Providers Date of admission: 12/14/17 22:33 Expected date of discharge: 12/17/17 Attending physician: Deirdre Fields Primary care physician: Sasha Barahona [place] [facility] Course: Discharge diagnosis Flank pain due to Acute pyelonephritis. Right-sided as per CT pelvis E. coli UTI Sepsis secondary to acute pyelonephritis. Patient has fever and leukocytosis and tachycardia Asthma stable Chronic back pain controlled with pain medications DVT prophylaxis Hospital course Patient is a 30-year-old female with dementia asthma and chronic back pain came to ER with complaints of right flank pain worsening for the past 2 days. Patient recently had urinary tract infection about 2 months ago which has resolved with antibiotics in the form of Bactrim at the time. Patient also says that she noticed her urine has been more dark than usual. Otherwise patient denied any dysuria or hematuria. Patient does have bilateral flank pain on admission. Patient did have nausea. No ulcers of vomiting. No diarrhea. No recent illnesses or sick contacts. She's had prior sections no other abdominal surgeries states that she does have chronic back pain had injections in 2004 nothing recent. Patient was febrile on admission with T-max of 103.2 WBC 17 T abdominal and pelvis showed multiple areas of hypodensity and delayed images in the right kidney consistent with multifocal right-sided pyelonephritis 12/16/2017 Patient denied any nausea or vomiting. Still having right flank pain. No fever no chills. Leukocytosis improved. Urine culture showed gram-negative bacilli and final urine culture report is awaiting at this time. Patient is being continued on ceftriaxone. 12/17/2017 Patient says that her right flank pain is resolved now. No complaints of rest pain or shortness of breath. No fever no chills. Urine culture showed E. coli. Patient be continued on antibiotics in the form of Bactrim for 10 more days. Otherwise patient is stable to be discharged home. Discharge physical examination was done Vital Signs - 24 hr 12/17/17 12/17/17 12/17/17 08:38 08:43 13:30 Temperature 97.3 F L 98.1 F Pulse Rate [ 69 72 Pulse Oximetery ] Respiratory 17 18 Rate Blood Pressure 91/54 89/59 [Right Arm] O2 Sat by Pulse 97 99 Oximetry Patient Condition at Discharge: Fair Plan - Discharge Summary Discharge Rx Participant: Yes New Discharge Prescriptions: New Sulfamethox-Tmp 800-160Mg [Bactrim DS 800-160 mg] 1 tab PO Q12HR 10 Days #20 tab Discharge Medication List Sulfamethox-Tmp 800-160Mg [Bactrim DS 800-160 mg] 1 tab PO Q12HR 10 Days #20 tab 12/17/17 [Rx] Follow up Appointment(s)/Referral(s): Sasha Barahona MD [Primary Care Provider] - 1-2 days Patient Instructions/Handouts: Urinary Tract Infection in Women (GEN) Activity/Diet/Wound Care/Special Instructions: FOLLOW UP ADVISED, SOONER FOR FEVERS, WORSENING PAIN, VOMITING, PAINFUL URINATION, BLOOD IN URINE, ANY PROBLEMS OR CONCERNS. Discharge Disposition: HOME SELF-CARE
== END 2017-12-17 16:25 | disposition home or self-care (01) | DRG 872 ==
LOC: EC 18:13 → 6PED 22:33
PROVIDERS: ADMIT Internal Medicine; ATTEND Internal Medicine
DX: A41.51 Sepsis due to Escherichia coli [E. coli] (principal); N10 Acute pyelonephritis; G89.29 Other chronic pain; M54.9 Dorsalgia, unspecified; J45.909 Unspecified asthma, uncomplicated; F17.200 Nicotine dependence, unspecified, uncomplicated; F90.9 Attention-deficit hyperactivity disorder, unspecified type; Z87.440 Personal history of urinary (tract) infections; Z82.49 Family history of ischemic heart disease and other diseases of the circulatory system; Z80.0 Family history of malignant neoplasm of digestive organs; Z83.3 Family history of diabetes mellitus; Z80.49 Family history of malignant neoplasm of other genital organs; Z80.8 Family history of malignant neoplasm of other organs or systems
CPT/HCPCS: 36415; 74177; 80048; 80053; 81001; 81025; 82150; 83605; 83690; 85025; 87040; 87077; 87086; 87186; 96361; 96374; 96375; 99285

== ENCOUNTER 2018-03-31 06:42 | Emergency (ER) | payer OTHER ==
[2018-03-31 06:50] VITALS: BP 132/83; PULSE 86; RESP 18; TEMP 97.7
--- NOTE | 2018-03-31 07:51 | ED ---
General Adult HPI - General Chief complaint: Extremity Injury, Upper Stated complaint: Arm Pain/swelling Time Seen by Provider: 03/31/18 07:00 Source: patient, RN notes reviewed Mode of arrival: ambulatory Limitations: no limitations - History of Present Illness Initial comments: This is a 32-year-old female who has a past medical history significant for drug abuse. Patient comes in today stating that she has had left arm pain since July. Patient states it hurts to fully extend her arm. Patient denies any redness patient denies any swelling. Patient denies any numbness or weakness. Patient states she's unable to fully use the arm because of the pain but she could if she could overcome the pain. Patient denies any injury to the patient denies any recent fever or chills. Patient denies chest pain difficult breathing shortness of breath per patient denies any neck pain or injury. Patient denies any abdominal pain patient denies nausea vomiting diarrhea - Related Data Previous Rx's Medication Instructions Recorded Sulfamethox-Tmp 800-160Mg [Bactrim 1 tab PO Q12HR 10 Days #20 tab 12/17/17 DS 800-160 mg] Allergies Allergy/AdvReac Type Severity Reaction Status Date / Time No Known Allergies Allergy Verified 03/31/18 06:50 Review of Systems ROS Statement: Those systems with pertinent positive or pertinent negative responses have been documented in the HPI. ROS Other: All systems not noted in ROS Statement are negative. Past Medical History Past Medical History: Asthma Additional Past Medical History / Comment(s): chronic back pain, History of Any Multi-Drug Resistant Organisms: None Reported Past Surgical History: Section, Uterine Ablation Additional Past Surgical History / Comment(s): ganglion cyst right foot, Past Anesthesia/Blood Transfusion Reactions: No Reported Reaction Past Psychological History: ADD/ADHD, Anxiety Smoking Status: Current every day smoker Past Alcohol Use History: None Reported Past Drug Use History: None Reported - Past Family History Sister(s) Family Medical History: Cancer, Diabetes Mellitus Additional Family Medical History / Comment(s): Diabetes type 1, cervical and pancreatic cancer Mother Family Medical History: Myocardial Infarction ([place]) Additional Family Medical History / Comment(s): Bipolar General Exam - General Exam Comments Initial Comments: GENERAL: Patient is well-developed and well-nourished. Patient is nontoxic and well- hydrated and is in mild distress. ENT: Neck is soft and supple. No significant lymphadenopathy is noted. Oropharynx is clear. Moist mucous membranes. Neck has full range of motion without eliciting any pain. EYES: The sclera were anicteric and conjunctiva were pink and moist. Extraocular movements were intact and pupils were equal round and reactive to light. Eyelids were unremarkable. PULMONARY: Unlabored respirations. Good breath sounds bilaterally. No audible rales rhonchi or wheezing was noted. CARDIOVASCULAR: There is a regular rate and rhythm without any murmurs gallops or rubs. ABDOMEN: Soft and nontender with normal bowel sounds. SKIN: Skin is clear with no lesions or rashes and otherwise unremarkable. NEUROLOGIC: Patient is alert and oriented x3. Cranial nerves II through XII are grossly intact. Motor and sensory are also intact. Normal speech, volume and content. Symmetrical smile. MUSCULOSKELETAL: Left arm is swollen does not erythematous I could not palpate any vascular cord. Patient's arm is tender to palpate in the bicep and tender to fully extend. LYMPHATICS: No significant lymphadenopathy is noted PSYCHIATRIC: Normal psychiatric evaluation. Normal interpersonal interactions appears functionally intact in deals appropriately with others. No signs of depression. No signs of anxiety. Limitations: no limitations Course Vital Signs 03/31/18 06:45 Temperature 97.7 F Pulse Rate 86 Respiratory 18 Rate Blood Pressure 132/83 O2 Sat by Pulse 97 Oximetry Medical Decision Making - Medical Decision Making Nurse went back in to draw blood and the patient refused she stated she just wanted something for the pain because it was her muscles and she didn't need blood drawn. The nurse try to convince her and the patient walked out before I could get back to the room. Disposition Clinical Impression: Arm pain Disposition: Left Against Medical Advice Referrals: Sasha Barahona MD [Primary Care Provider] - 1-2 days Time of Disposition: 08:03
[2018-03-31] MEDS ORDERED: KETOROLAC 60 MG/2 ML VIAL IM STA (07:52)
== END 2018-03-31 07:50 | disposition left against medical advice (07) ==
LOC: EC 06:42
DX: M79.602 Pain in left arm (principal); F17.200 Nicotine dependence, unspecified, uncomplicated
CPT/HCPCS: 99283

== ENCOUNTER 2018-04-12 16:24 | Emergency (ER) | payer OTHER ==
--- NOTE | 2018-04-12 18:45 | ED ---
Extremity Problem HPI - General Chief complaint: Extremity Problem,Nontraumatic Stated complaint: arm pain/numbness-revisit Time Seen by Provider: 04/12/18 17:13 Source: patient Mode of arrival: ambulatory Limitations: no limitations - History of Present Illness Initial comments: This is a 32-year-old female who was recently evaluated by Dr. Woodson for left arm pain, tingling and burning 2 weeks prior. Pt left AMA. Today she comes in with similar complaint, burning feeling in the right bicep muscles, she states that she has been experiencing it since Novemeb and cant take it any longer. 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 Pt denies any erythema, trauma or injury to the extremity, neck or shoulder pain, upper extremity swelling. Pt denies history of blood clots, fever, chills, night sweats, excessive exercise. She states she cannot think of how this began. Pt stated she was seen at [facility] the same day she was seen by Dr. Woodson and left AMA, where XR of the left arm were obtained revealing a retained needle in the AC. However she stated this has been there for 8 years and she has been told multiple times. Patient denies any recent fever, chills, shortness of breath, chest pain, back pain, abdominal pain, nausea or vomiting, numbness or tingling, dysuria or hematuria, constipation or diarrhea, headaches or visual changes, or any other complaints. - Related Data Previous Rx's Medication Instructions Recorded Sulfamethox-Tmp 800-160Mg [Bactrim 1 tab PO Q12HR 10 Days #20 tab 12/17/17 DS 800-160 mg] Allergies Allergy/AdvReac Type Severity Reaction Status Date / Time No Known Allergies Allergy Verified 04/12/18 16:29 Review of Systems ROS Statement: Those systems with pertinent positive or pertinent negative responses have been documented in the HPI. ROS Other: All systems not noted in ROS Statement are negative. Constitutional: Denies: as per HPI, chills, weakness, weight change, night sweats Eyes: Denies: eye pain, vision change ENT: Denies: ear pain, throat pain Respiratory: Denies: cough, dyspnea, wheezes, hemoptysis, stridor Cardiovascular: Denies: chest pain, palpitations, dyspnea on exertion, orthopnea , edema, syncope Endocrine: Denies: fatigue Gastrointestinal: Denies: abdominal pain, nausea, vomiting, diarrhea, constipation Genitourinary: Denies: urgency, dysuria, frequency, hematuria Musculoskeletal: Reports: myalgia. Denies: back pain, joint swelling, arthralgia Skin: Denies: rash, lesions, change in color Neurological: Denies: headache, weakness, numbness, paresthesias, confusion, abnormal gait Past Medical History Past Medical History: Asthma Additional Past Medical History / Comment(s): chronic back pain, History of Any Multi-Drug Resistant Organisms: None Reported Past Surgical History: Section, Uterine Ablation Additional Past Surgical History / Comment(s): ganglion cyst right foot, Past Anesthesia/Blood Transfusion Reactions: No Reported Reaction Past Psychological History: ADD/ADHD, Anxiety Smoking Status: Current every day smoker Past Alcohol Use History: None Reported Past Drug Use History: Marijuana - Past Family History Sister(s) Family Medical History: Cancer, Diabetes Mellitus Additional Family Medical History / Comment(s): Diabetes type 1, cervical and pancreatic cancer Mother Family Medical History: Myocardial Infarction ([place]) Additional Family Medical History / Comment(s): Bipolar General Exam - General Exam Comments Initial Comments: General: The patient is awake and alert, in no distress, and does not appear acutely ill. Eye: Pupils are equal, round and reactive to light, extra-ocular movements are intact. No nystagmus. There is normal conjunctiva bilaterally. No signs of icterus. Ears, nose, mouth and throat: There are moist mucous membranes and no oral lesions. Neck: The neck is supple, there is no tenderness or JVD. Cardiovascular: There is a regular rate and rhythm. No murmur, rub or gallop is appreciated. Respiratory: Lungs are clear to auscultation, respirations are non-labored, breath sounds are equal. No wheezes, stridor, rales, or rhonchi. Musculoskeletal: Full active and passive ROM of the shoulder, elbows, wrists and hands equally b/l she able to fully extend and flex the left arm. Patient admits to tenderness palpation over the biceps muscle, however there is no palpable defects or masses. No palpable venous cords. Patient admits to pain with full extension of the leftt arm. Strength 5/5 of the upper extremities equally bilaterally. Sensation intact of the upper extremities equally bilaterally. Compartments are soft and compressible. Radial and ulnar pulses equal bilaterally 2+. Capillary refill less than 2 seconds. Ulnar, median and radial nerve intact bilaterally. Full range of motion of the cervical spine, no tenderness. No midline or paravertebral tenderness to palpation of the cervical spine. Negative Spurling's test bilaterally. Neurological: A&O x 3. CN II-XII intact, There are no obvious motor or sensory deficits. Coordination appears grossly intact. Speech is normal. Skin: Skin is warm and dry and no rashes or lesions are noted. Psychiatric: Cooperative, appropriate mood & affect, normal judgment. Limitations: no limitations Course Vital Signs 04/12/18 04/12/18 16:26 20:47 Temperature 98.0 F 97.9 F Pulse Rate 108 H 84 Respiratory 20 18 Rate Blood Pressure 131/92 110/78 O2 Sat by Pulse 98 97 Oximetry Medical Decision Making - Medical Decision Making X-rays of the humerus and shoulder were obtained revealing retained foreign body at the left AC. Venous duplex ultrasound was obtained of the left upper extremity negative for DVT. Musculoskeletal exam positive only for tenderness to palpation over the biceps muscle, and pain with full extension of the left arm. Neurovascular exam unremarkable. Compartments soft and compressible. Case is discussed in detail Dr. Woodson, at this time we feel patient would benefit from orthopedic surgery follow-up for further evaluation and treatment. VS WNL. Patient agreed with plan and was discharged in stable condition. Patient was instructed to return to the department for worsening or change in symptoms, for which patient agreed. Patient is to follow primary care 1-2 days. Disposition Clinical Impression: Left arm pain Disposition: HOME SELF-CARE Condition: Good Instructions: Arm Pain (ED) Additional Instructions: Please use over the counter pain medication as discussed. Please follow-up with orthopedic surgery in 1-2 days. Please return to emergency room if the symptoms increase or worsen or for any other concerns. Is patient prescribed a controlled substance at d/c from ED?: No Referrals: Sasha Barahona MD [Primary Care Provider] - 1-2 days Gil Rodriguez MD [STAFF PHYSICIAN] - 1-2 days Time of Disposition: 20:36
--- NOTE | 2018-04-12 19:09 | XR ---
PROCEDURE: XR shoulder complete LT, 3 views DATE AND TIME: 04/12/2018 6:33 PM REFERRING PHYSICIAN: Lili Ocampo CLINICAL INDICATION: PHH, Pain TECHNIQUE: Department protocol. COMPARISON: None FINDINGS: There is no fracture or malalignment. The soft tissues are unremarkable. IMPRESSION: NO ACUTE PROCESS.
--- NOTE | 2018-04-12 19:12 | XR ---
PROCEDURE: XR humerus LT, 3 views DATE AND TIME: 04/12/2018 6:33 PM REFERRING PHYSICIAN: Lili Ocampo CLINICAL INDICATION: PHH, Pain TECHNIQUE: Department protocol. COMPARISON: None FINDINGS: There is no fracture or malalignment. However, there is a 10 mm x 1 mm linear metallic radiopaque foreign body situated anteriorly within t he lateral antecubital fossa at the level of the epicondyles of the humerus. This has the appearance of a broken off needle, oriented longitudinally. IMPRESSION: Positive for radiopaque foreign body within the antecubital fossa.
--- NOTE | 2018-04-12 20:05 | US ---
EXAMINATION TYPE: US venous doppler duplex UE LT DATE OF EXAM: 04/12/2018 COMPARISON: NONE CLINICAL HISTORY: Pain. Left arm pain Some exam limitations due to patient position. SIDE PERFORMED: Left IMPRESSION: Grayscale, color doppler, spectral doppler imaging performed of the deep veins of the upp er extremities. There is normal flow, compressibility and vascular waveforms. IMPRESSION: NEGATIVE FOR DVT, LEFT UPPER EXTREMITY.
[2018-04-12 20:48] VITALS: BP 110/78; PULSE 84; RESP 18; TEMP 97.9
== END 2018-04-12 20:47 | disposition home or self-care (01) ==
LOC: EC 16:24
DX: M79.602 Pain in left arm (principal); R20.2 Paresthesia of skin; F17.200 Nicotine dependence, unspecified, uncomplicated; Z98.890 Other specified postprocedural states
CPT/HCPCS: 99284

== ENCOUNTER 2018-08-09 18:01 | Emergency (ER) | payer OTHER ==
[2018-08-09 18:17] VITALS: TEMP 98.3
[2018-08-09 18:58] VITALS: BP 134/85; RESP 22
[2018-08-09 19:08] LABS: Basophils % (A) 0 %; Eosinophils # (A) 0.3 k/uL (0-0.7); Eosinophils % (A) 3 %; HCT 42.3 % (34.0-46.0); HGB 14.3 gm/dL (11.4-16.0); Lymphocytes # (A) 3.3 k/uL (1.0-4.8); Lymphocytes % (A) 37 %; MCH 29.8 pg (25.0-35.0); MCHC 33.9 g/dL (31.0-37.0); Monocytes # (A) 0.4 k/uL (0-1.0); Monocytes % (A) 4 %; Neutrophils # (A) 4.8 k/uL (1.3-7.7); Neutrophils % (A) 54 %; Platelet Count 166 k/uL (150-450); RBC 4.81 m/uL (3.80-5.40)
[2018-08-09 19:18] LABS: ALT 16 U/L (9-52); AST 22 U/L (14-36); Albumin 4.2 g/dL (3.5-5.0); Alkaline Phosphatase 45 U/L (38-126); Anion Gap 12 mmol/L; Blood Urea Nitrogen 13 mg/dL (7-17); Calcium 9.7 mg/dL (8.4-10.2); Carbon Dioxide 22 mmol/L (22-30); Chloride 105 mmol/L (98-107); Glucose 110 mg/dL (74-99); Potassium 4.7 mmol/L (3.5-5.1); Sodium 139 mmol/L (137-145); Total Bilirubin 0.4 mg/dL (0.2-1.3); Total Protein 7.2 g/dL (6.3-8.2)
[2018-08-09 19:24] VITALS: PULSE 95
[2018-08-09] MEDS ORDERED: LIDOCAINE 1% INJ 10MG/ML (20 ML MDV) SQ ONE (19:25)
[2018-08-09] MEDS ORDERED: MORPHINE SULFATE 2 MG/ML SYRINGE IVP STA (19:25)
[2018-08-09] MEDS ORDERED: AZITHROMYCIN 500 MG TAB PO STA (20:04)
[2018-08-09] MEDS ORDERED: cefTRIAXone 250 MG VIAL IM STA (20:04)
--- NOTE | 2018-08-09 20:04 | ED ---
Skin/Abscess/FB HPI - General Chief complaint: Skin/Abscess/Foreign Body Stated complaint: cyst Time Seen by Provider: 08/09/18 18:33 Source: patient Mode of arrival: ambulatory Limitations: no limitations - History of Present Illness Initial comments: 32yo female who denies PMH presenting today for cc of "bump near vagina"x 1 week. Pt states a few days after shaving she noticed small bump on the outer skin near vagina. She thought it was ingrown hair at this time. As days passed for the past week the bump has been increasing in size, she states it began draining today. Pt states that due to location when she walks the skin rubs causing increasing pain. Pt denies experiencing this in the past. Pt denies vaginal discharge, vaginal bleeding, vaginal lesions, urgency, frequency, dysuria, dsyparunia. Pt states she is monogomous with one patner. Pt denies fever, chills, nightsweats, general malaise. Remainder oF ROS (-) Upon arrivel pt afebrile. - Related Data Previous Rx's Medication Instructions Recorded Cephalexin [Keflex] 500 mg PO Q8HR 7 Days #21 cap 08/09/18 Sulfamethox-Tmp 800-160Mg [Bactrim 1 tab PO Q12HR 7 Days #14 tab 08/09/18 DS 800-160 mg] Allergies Allergy/AdvReac Type Severity Reaction Status Date / Time No Known Allergies Allergy Verified 08/09/18 18:22 Review of Systems ROS Statement: Those systems with pertinent positive or pertinent negative responses have been documented in the HPI. ROS Other: All systems not noted in ROS Statement are negative. Constitutional: Denies: fever, chills Respiratory: Denies: cough, dyspnea Cardiovascular: Denies: chest pain Endocrine: Denies: fatigue Gastrointestinal: Denies: nausea, vomiting Genitourinary: Denies: urgency, dysuria, frequency, hematuria, discharge, dyspareunia Musculoskeletal: Denies: back pain Skin: Reports: lesions (7oclock position on skin near external vagina) Neurological: Denies: weakness, confusion Past Medical History Past Medical History: Asthma Additional Past Medical History / Comment(s): chronic back pain, History of Any Multi-Drug Resistant Organisms: None Reported Past Surgical History: Section, Uterine Ablation Additional Past Surgical History / Comment(s): ganglion cyst right foot, Past Anesthesia/Blood Transfusion Reactions: No Reported Reaction Past Psychological History: ADD/ADHD, Anxiety Smoking Status: Current every day smoker Past Alcohol Use History: None Reported Past Drug Use History: Marijuana - Past Family History Sister(s) Family Medical History: Cancer, Diabetes Mellitus Additional Family Medical History / Comment(s): Diabetes type 1, cervical and pancreatic cancer Mother Family Medical History: Myocardial Infarction ([place]) Additional Family Medical History / Comment(s): Bipolar General Exam - General Exam Comments Initial Comments: General: The patient is awake and alert, in no distress, and does not appear acutely ill. Eye: Pupils are equal, round and reactive to light, extra-ocular movements are intact. No nystagmus. There is normal conjunctiva bilaterally. No signs of icterus. Ears, nose, mouth and throat: There are moist mucous membranes and no oral lesions. Neck: The neck is supple, there is no tenderness or JVD. Cardiovascular: There is a regular rate and rhythm. No murmur, rub or gallop is appreciated. Respiratory: Lungs are clear to auscultation, respirations are non-labored, breath sounds are equal. No wheezes, stridor, rales, or rhonchi. Gastrointestinal: Soft, non-distended, non-tender abdomen without masses or organomegaly noted. There is no rebound or guarding present. No CVA tenderness. Bowel sounds are unremarkable. Musculoskeletal: Normal ROM, no tenderness. Strength 5/5. Sensation intact. Pulses equal bilaterally 2+. Neurological: A&O x 3. CN II-XII intact, There are no obvious motor or sensory deficits. Coordination appears grossly intact. Speech is normal. Skin: Skin is warm and dry and no rashes or lesions are noted. Psychiatric: Cooperative, appropriate mood & affect, normal judgment. : external exam, shaved pubic hair on mons pubis. No evidence of bartholin gland or skene gland cyst or abscess. No eyrthema, ulcerative lesions, ecchymosis. There is small indurated area at the 70clock position of the skin no mucosa involvement. Central area draining. No surrounding cellulitis. Internal exam: well rugated pink mucosa. White vaginal discharge in vault. Cervix pink 3x3cm roughly, no lesiosn on cervix. Os closed, no discharge from os. No cervical motion or adenxal tenderness to bimanual examination. No adnexal masses. Limitations: no limitations Course Vital Signs 08/09/18 08/09/18 08/09/18 18:15 18:32 18:40 Temperature 98.3 F Pulse Rate 104 H Respiratory 18 Rate Blood Pressure 92/61 134/85 O2 Sat by Pulse 99 98 98 Oximetry 08/09/18 08/09/18 18:50 19:23 Temperature 98.3 F Pulse Rate 91 95 Respiratory 22 Rate Blood Pressure 134/85 O2 Sat by Pulse 97 Oximetry Medical Decision Making - Medical Decision Making PE findings consistent with furuncle of the skin near vagina, no pain to palpation near bartholin or skene gland. No significant fluctulance of this area. More induration. Needle aspiration performed revealing serosanginous fluid , no purulent drainge. Culture pending. No purulent drainage. No systemic signs of infection spread. Pt afebrilel well appearing. Discharge on speculum exam. Treated ppx for STD. Trich (-). UA leukocyesterase no nitrates. Pt denies urinary symptoms. Pt treated for abscess with bactrim and keflex. Contacted OBGYN Dr. Polanco who recommended PCP f/u. Pt is agreeable with plan. Return parameters discussed with patient who verbalized understanding. Case discussed with Dr. De Jesus who did inperson evaluation of lesion, agrees with impression/ plan. Pt discharged in stable condition. - Lab Data Result diagrams: 08/09/18 18:48 08/09/18 18:52 Lab Results 08/09/18 08/09/18 08/09/18 Range/Units 18:48 18:52 19:45 WBC 9.0 (3.8-10.6) k/uL RBC 4.81 (3.80-5.40) m/uL Hgb 14.3 (11.4-16.0) gm/dL Hct 42.3 (34.0-46.0) % MCV 88.0 (80.0-100.0) fL MCH 29.8 (25.0-35.0) pg MCHC 33.9 (31.0-37.0) g/dL RDW 13.0 (11.5-15.5) % Plt Count 166 (150-450) k/uL Neutrophils % 54 % Lymphocytes % 37 % Monocytes % 4 % Eosinophils % 3 % Basophils % 0 % Neutrophils # 4.8 (1.3-7.7) k/uL Lymphocytes # 3.3 (1.0-4.8) k/uL Monocytes # 0.4 (0-1.0) k/uL Eosinophils # 0.3 (0-0.7) k/uL Basophils # 0.0 (0-0.2) k/uL Sodium 139 (137-145) mmol/L Potassium 4.7 (3.5-5.1) mmol/L Chloride 105 (98-107) mmol/L Carbon Dioxide 22 (22-30) mmol/L Anion Gap 12 mmol/L BUN 13 (7-17) mg/dL Creatinine 0.71 (0.52-1.04) mg/dL Est GFR (CKD-EPI)AfAm >90 (>60 ml/min/1.73 sqM) Est GFR (CKD-EPI)NonAf >90 (>60 ml/min/1.73 sqM) Glucose 110 H (74-99) mg/dL Calcium 9.7 (8.4-10.2) mg/dL Total Bilirubin 0.4 (0.2-1.3) mg/dL AST 22 (14-36) U/L ALT 16 (9-52) U/L Alkaline Phosphatase 45 (38-126) U/L Total Protein 7.2 (6.3-8.2) g/dL Albumin 4.2 (3.5-5.0) g/dL Urine Color Urine Appearance (Clear) Urine pH (5.0-8.0) Ur Specific [place] (1.001-1.035) Urine Protein (Negative) Urine Glucose (UA) (Negative) Urine Ketones (Negative) Urine Blood (Negative) Urine Nitrite (Negative) Urine Bilirubin (Negative) Urine Urobilinogen (<2.0) mg/dL Ur Leukocyte Esterase (Negative) Urine RBC (0-5) /hpf Urine WBC (0-5) /hpf Ur Squamous Epith Cells (0-4) /hpf Urine Mucus (None) /hpf Urine HCG, Qual (Not Detectd) Trichomonas Ag (Rapid) Negative (Negative) 08/09/18 08/09/18 Range/Units 20:30 20:30 WBC (3.8-10.6) k/uL RBC (3.80-5.40) m/uL Hgb (11.4-16.0) gm/dL Hct (34.0-46.0) % MCV (80.0-100.0) fL MCH (25.0-35.0) pg MCHC (31.0-37.0) g/dL RDW (11.5-15.5) % Plt Count (150-450) k/uL Neutrophils % % Lymphocytes % % Monocytes % % Eosinophils % % Basophils % % Neutrophils # (1.3-7.7) k/uL Lymphocytes # (1.0-4.8) k/uL Monocytes # (0-1.0) k/uL Eosinophils # (0-0.7) k/uL Basophils # (0-0.2) k/uL Sodium (137-145) mmol/L Potassium (3.5-5.1) mmol/L Chloride (98-107) mmol/L Carbon Dioxide (22-30) mmol/L Anion Gap mmol/L BUN (7-17) mg/dL Creatinine (0.52-1.04) mg/dL Est GFR (CKD-EPI)AfAm (>60 ml/min/1.73 sqM) Est GFR (CKD-EPI)NonAf (>60 ml/min/1.73 sqM) Glucose (74-99) mg/dL Calcium (8.4-10.2) mg/dL Total Bilirubin (0.2-1.3) mg/dL AST (14-36) U/L ALT (9-52) U/L Alkaline Phosphatase (38-126) U/L Total Protein (6.3-8.2) g/dL Albumin (3.5-5.0) g/dL Urine Color Yellow Urine Appearance Clear (Clear) Urine pH 6.0 (5.0-8.0) Ur Specific [place] 1.021 (1.001-1.035) Urine Protein Negative (Negative) Urine Glucose (UA) Negative (Negative) Urine Ketones Negative (Negative) Urine Blood Small H (Negative) Urine Nitrite Negative (Negative) Urine Bilirubin Negative (Negative) Urine Urobilinogen <2.0 (<2.0) mg/dL Ur Leukocyte Esterase Trace H (Negative) Urine RBC 1 (0-5) /hpf Urine WBC 1 (0-5) /hpf Ur Squamous Epith Cells 6 H (0-4) /hpf Urine Mucus Occasional H (None) /hpf Urine HCG, Qual Not Detected (Not Detectd) Trichomonas Ag (Rapid) (Negative) Disposition Clinical Impression: Abscess Disposition: HOME SELF-CARE Condition: Good Instructions: Abscess Incision and Drainage (ED) Additional Instructions: Please use medication as discussed. Please follow-up with primary care provider in next 2-3 days. Please return to emergency room if the symptoms increase or worsen or for any other concerns. Prescriptions: Cephalexin [Keflex] 500 mg PO Q8HR 7 Days #21 cap Sulfamethox-Tmp 800-160Mg [Bactrim DS 800-160 mg] 1 tab PO Q12HR 7 Days #14 tab Is patient prescribed a controlled substance at d/c from ED?: No Referrals: Sasha Barahona MD [Primary Care Provider] - 1-2 days Time of Disposition: 21:29
[2018-08-09 20:56] LABS: Appearance,Urine Clear (Clear); Bilirubin,Urine Negative (Negative); Blood,Urine Small (Negative); Color,Urine Yellow; Glucose,Urine (UA) Negative (Negative); Ketones,Urine Negative (Negative); Leukocyte Esterase,Urine Trace (Negative); Mucus,Urine Occasional /hpf; Nitrite,Urine Negative (Negative); Protein,Urine Negative (Negative); RBC,Urine 1 /hpf (0-5); Specific Gravity,Urine 1.021 (1.001-1.035); Squamous Epithelial Cell,Urine 6 /hpf (0-4); Urobilinogen,Urine <2.0 mg/dL (<2.0)
[2018-08-10 16:05] LABS: C. trachomatis,PCR Negative (Neg,Equiv); Chlamydia trachomatis Source Cervix; N. gonorrhoeae,PCR Negative (Neg,Equiv); Neisseria Source Cervix
== END 2018-08-09 21:50 | disposition home or self-care (01) ==
LOC: EC 18:01
DX: N76.0 Acute vaginitis (principal); F17.200 Nicotine dependence, unspecified, uncomplicated
CPT/HCPCS: 36415; 80053; 85025; 81001; 81025; 87808; 87491; 87591; 87070; 87205; 99283; 10160; 96374; 96372; J0696; J2270

== ENCOUNTER 2018-12-16 12:10 | Emergency (ER) | payer OTHER ==
[2018-12-16 12:22] VITALS: BP 130/81; PULSE 88; RESP 20; TEMP 98.8
[2018-12-16] MEDS ORDERED: KETOROLAC 60 MG/2 ML VIAL IM STA (13:32)
--- NOTE | 2018-12-16 13:44 | ED ---
Upper Extremity HPI - General Chief Complaint: Extremity Injury, Upper Stated Complaint: shoulder & neck pain Time Seen by Provider: 12/16/18 12:39 Source: patient, RN notes reviewed, old records reviewed Mode of arrival: ambulatory Limitations: no limitations - History of Present Illness Initial Comments: 33-year-old female presenting to emergency department today complaints of right shoulder pain. Patient reports she's been having symptoms off and on for the past 2 months. Symptoms started after she is having heavy snow shoveling as well as redoing a bathroom. Patient states that she is unable to lift a coffee pot with her right shoulder at this time. She is right-handed. She denies any recent fall or trauma. - Related Data Previous Rx's Medication Instructions Recorded Cephalexin [Keflex] 500 mg PO Q8HR 7 Days #21 cap 08/09/18 Sulfamethox-Tmp 800-160Mg [Bactrim 1 tab PO Q12HR 7 Days #14 tab 08/09/18 DS 800-160 mg] Ibuprofen 600 mg PO TID #20 tablet 12/16/18 Allergies Allergy/AdvReac Type Severity Reaction Status Date / Time No Known Allergies Allergy Verified 12/16/18 12:22 Review of Systems ROS Statement: Those systems with pertinent positive or pertinent negative responses have been documented in the HPI. ROS Other: All systems not noted in ROS Statement are negative. Past Medical History Past Medical History: Asthma Additional Past Medical History / Comment(s): chronic back pain, History of Any Multi-Drug Resistant Organisms: None Reported Past Surgical History: Section, Uterine Ablation Additional Past Surgical History / Comment(s): ganglion cyst right foot, Past Anesthesia/Blood Transfusion Reactions: No Reported Reaction Past Psychological History: ADD/ADHD, Anxiety Smoking Status: Current every day smoker Past Alcohol Use History: None Reported Past Drug Use History: Marijuana - Past Family History Sister(s) Family Medical History: Cancer, Diabetes Mellitus Additional Family Medical History / Comment(s): Diabetes type 1, cervical and pancreatic cancer Mother Family Medical History: Myocardial Infarction ([place]) Additional Family Medical History / Comment(s): Bipolar General Exam - General Exam Comments Initial Comments: 33-year-old female. Alert and oriented. Patient appears in no significant distress. Limitations: no limitations General appearance: alert, in no apparent distress Head exam: Present: atraumatic, normocephalic, normal inspection Eye exam: Present: normal appearance, PERRL, EOMI. Absent: scleral icterus, conjunctival injection, periorbital swelling ENT exam: Present: normal exam, mucous membranes moist Neck exam: Present: normal inspection. Absent: tenderness, meningismus, lymphadenopathy Respiratory exam: Present: normal lung sounds bilaterally. Absent: respiratory distress, wheezes, rales, rhonchi, stridor Cardiovascular Exam: Present: regular rate, normal rhythm, normal heart sounds. Absent: systolic murmur, diastolic murmur, rubs, gallop, clicks GI/Abdominal exam: Present: soft, normal bowel sounds. Absent: distended, tenderness, guarding, rebound, rigid Extremities exam: Present: normal inspection, full ROM, normal capillary refill. Absent: tenderness, pedal edema, joint swelling, calf tenderness Right Shoulder Exam: Present: normal inspection, tenderness (Patient has tenderness over the anterior aspect of the shoulder. Pain with any overhead range of motion.) Elbow exam: Present: normal inspection, full ROM Forearm Wrist exam: Present: normal inspection Hand Wrist exam: Present: normal inspection, full ROM Back exam: Present: normal inspection Neurological exam: Present: alert, oriented X3, CN II-XII intact Psychiatric exam: Present: normal affect, normal mood Skin exam: Present: warm, dry, intact, normal color. Absent: rash Course Vital Signs 12/16/18 12:20 Temperature 98.8 F Pulse Rate 88 Respiratory 20 Rate Blood Pressure 130/81 O2 Sat by Pulse 98 Oximetry Medical Decision Making - Medical Decision Making Is a 33-year-old female presents emergency department today complaints of right shoulder pain. Pain with range of motion. Symptoms started 2 months ago after injury while snow shoveling. Patient at this time has normal x-ray. Normal sensation distally. She has pain with any range of motion above the head. Patient diagnosed with rotator cuff injury. Patient placed in a sling. Discussed using antiplatelet her medicine. She has a prescription of Flexeril at home. No further narcotics or controlled substances filled given the Patient with history of addiction. Patient will be discharged at this time with appropriate follow-up with orthopedic. - Radiology Data Radiology results: report reviewed X-rays negative for any acute process. His symptoms persist or persist including MRI for concern for rotator cuff injury. Disposition Clinical Impression: Injury of right rotator cuff Disposition: HOME SELF-CARE Condition: Good Instructions (If sedation given, give patient instructions): Rotator Cuff Tendinitis (ED) Additional Instructions: Patient denies follow-up with primary care doctor and ortho. Return to emergency department if any alarming signs or symptoms occur. Prescriptions: Ibuprofen 600 mg PO TID #20 tablet Is patient prescribed a controlled substance at d/c from ED?: No Referrals: Sasha Barahona MD [Primary Care Provider] - 1-2 days John Gorman DO [Medical Doctor] - 1-2 days Time of Disposition: 14:18
--- NOTE | 2018-12-16 14:07 | XR ---
EXAMINATION TYPE: XR shoulder complete RT DATE OF EXAM: 12/16/2018 COMPARISON: NONE HISTORY: Pain TECHNIQUE: Three views are submitted. FINDINGS: The osseous structures are intact. There is no acute fracture or dislocation. The AC joint is maint ained. IMPRESSION: 1. No acute process. If symptoms persist or are persistent correlate with MRI if concern for rotator cuff injury.
== END 2018-12-16 14:38 | disposition home or self-care (01) ==
LOC: EC 12:10
DX: S46.001A Unspecified injury of muscle(s) and tendon(s) of the rotator cuff of right shoulder, initial encounter (principal); F17.200 Nicotine dependence, unspecified, uncomplicated; X50.9XXA Other and unspecified overexertion or strenuous movements or postures, initial encounter; Y93.H1 Activity, digging, shoveling and raking; Y93.89 Activity, other specified
CPT/HCPCS: 73030; 99284; 96372; J1885

== ENCOUNTER → 2019-01-18 | Outpatient (CLI) | payer OTHER ==
--- NOTE | 2019-01-19 09:42 | MR ---
EXAMINATION TYPE: MR shoulder RT wo con DATE OF EXAM: 01/18/2019 COMPARISON: Right shoulder x-rays dated 12/16/2018 HISTORY: Pain in right shoulder / Injury TECHNIQUE: Multiplanar, multisequence imaging of the right shoulder is performed without contrast. FINDINGS: Rotator Cuff: There is mild supraspinatus and infraspinatus tendinopathy with alteration of the intri nsic signal of the insertional fibers. No focal tear. The teres minor and subscapularis tendons are i ntact and unremarkable in signal. Acromioclavicular Joint: Mild acromioclavicular arthropathy is seen with capsular hypertrophy. Glenohumeral Joint: Minimal joint space narrowing. Labrum: There appears to be a posterior superior labrum tear as there is absence of the usual hypoint ense triangular signal. However evaluation of the labrum is limited in this nonarthrographic examinat ion. Biceps Tendon: The long head of biceps is in normal location within bicipital groove. Bone marrow signal: No focal abnormal marrow signal is appreciated. Small osteophyte projects from th e medial humeral head at the glenohumeral joint abutting the inferior labrum. Punctate osseous cysts of humeral head. Other: There is minimal fluid in the subacromial/subdeltoid fluid bursa and subcoracoid bursa. IMPRESSION: 1. There appears to be a posterior superior labral tear although there is limitation in evaluation of the labrum in this nonarthrographic examination and without joint effusion. If there is further conc burton for labral tear or joint instability MR arthrogram could be performed. 2. Mild supraspinatus and infraspinatus tendinopathy with no focal tear. 3. Minimal fluid in the subacromial/subdeltoid bursa and subcoracoid bursa that may clinically relate to bursitis.
== END | disposition home or self-care (01) ==
LOC: RADMRIMAIN 11:45
PROVIDERS: ATTEND Physician Assistant
DX: M67.911 Unspecified disorder of synovium and tendon, right shoulder (principal)

== ENCOUNTER 2019-04-19 23:48 | Emergency (ER) | payer OTHER ==
[2019-04-19 23:55] VITALS: RESP 18; TEMP 98.1
[2019-04-20] MEDS ORDERED: SODIUM CHLORIDE 0.9% 1,000 ML IV STA (00:07)
[2019-04-20] MEDS ORDERED: KETOROLAC 30 MG/ML 1 ML VIAL IVP STA (00:07)
[2019-04-20 00:57] LABS: Basophils # (A) 0.1 k/uL (0-0.2); Basophils % (A) 1 %; Eosinophils # (A) 0.3 k/uL (0-0.7); Eosinophils % (A) 3 %; HCT 39.6 % (34.0-46.0); HGB 13.5 gm/dL (11.4-16.0); Lymphocytes # (A) 3.1 k/uL (1.0-4.8); Lymphocytes % (A) 39 %; MCH 30.5 pg (25.0-35.0); MCV 89.7 fL (80.0-100.0); Mean Platelet Volume 7.7; Monocytes # (A) 0.4 k/uL (0-1.0); Monocytes % (A) 5 %; Neutrophils % (A) 51 %; Platelet Count 218 k/uL (150-450); RBC 4.42 m/uL (3.80-5.40); RDW 12.5 % (11.5-15.5); WBC 7.9 k/uL (3.8-10.6)
[2019-04-20 00:59] LABS: Appearance,Urine Clear (Clear); Bilirubin,Urine Negative (Negative); Blood,Urine Negative (Negative); Color,Urine Yellow; Glucose,Urine (UA) Negative (Negative); Ketones,Urine Negative (Negative); Leukocyte Esterase,Urine Negative (Negative); Nitrite,Urine Negative (Negative); Protein,Urine Trace (Negative); Specific Gravity,Urine 1.032 (1.001-1.035)
[2019-04-20 01:07] LABS: ALT 16 U/L (9-52); AST 20 U/L (14-36); African American GFR (CKD) >90 (>60 ml/min/1.73 sqM); Alkaline Phosphatase 41 U/L (38-126); Amylase 62 U/L (30-110); Anion Gap 8 mmol/L; Blood Urea Nitrogen 15 mg/dL (7-17); Calcium 9.2 mg/dL (8.4-10.2); Carbon Dioxide 22 mmol/L (22-30); Chloride 107 mmol/L (98-107); Glucose 107 mg/dL (74-99); Potassium 4.2 mmol/L (3.5-5.1); Sodium 137 mmol/L (137-145); Total Bilirubin 0.3 mg/dL (0.2-1.3); Total Protein 6.6 g/dL (6.3-8.2)
--- NOTE | 2019-04-20 01:11 | XR ---
EXAM: XR Abdomen, 2 Views CLINICAL HISTORY: ITS.REASON XR Reason: abdominal pain TECHNIQUE: Frontal view of the abdomen/pelvis with upright view of the abdomen. COMPARISON: CT abdomen and pelvis of 12/14/17. FINDINGS: Intraperitoneal space: No free air. Gastrointestinal tract: Unremarkable. No dilation. Bones/joints: Stable mild deformity of the right femoral head neck junction. IMPRESSION: No radiographic findings of acute abdominal process.
[2019-04-20] MEDS ORDERED: MORPHINE SULFATE 4 MG/ML SYRINGE IVP STA (02:32)
[2019-04-20] MEDS ORDERED: ONDANSETRON 4 MG/2 ML VIAL IVP STA (02:33)
--- NOTE | 2019-04-20 02:33 | ED ---
Abdominal Pain HPI - General Chief Complaint: Abdominal Pain Stated Complaint: Abd Pain, Dark Urine Time Seen by Provider: 04/19/19 23:58 Source: patient Mode of arrival: ambulatory Limitations: no limitations - History of Present Illness Initial Comments: 33-year-old female patient presents to the emergency department today for evaluation of abdominal and back pain. Patient states she is having bilateral flank pain. Patient states today she is been having urinary urgency and frequency. States her urine is dark in color but she denies any hematuria. Patient states that she has had these symptoms for the last 2 weeks. States she was seen and evaluated at [facility] and diagnosed with colitis and given a prescription for Cipro and Flagyl. Patient states that she was unable to complete the Cipro due to inability to swallow the pills however she did continue Flagyl. States that she feels like she may have a kidney infection. States she has had these before and her pain and symptoms are similar. States with her initial onset of symptoms she did have nausea and vomiting but that has resolved. Denies any current diarrhea, hematochezia, or melena. States that she has been having hot flashes and chills but has not taken her temperature. Denies any recent travel or sick contacts. Denies any chance of . Patient denies any recent rash, shortness breath, chest pain, numbness, tingling, dizziness, weakness, headache, visual changes, or any other complaints. - Related Data Previous Rx's Medication Instructions Recorded Cephalexin [Keflex] 500 mg PO Q8HR 7 Days #21 cap 08/09/18 Sulfamethox-Tmp 800-160Mg [Bactrim 1 tab PO Q12HR 7 Days #14 tab 08/09/18 DS 800-160 mg] Ibuprofen 600 mg PO TID #20 tablet 12/16/18 Dicyclomine [Bentyl] 20 mg PO QID #12 tablet 04/20/19 Ondansetron [Zofran ODT] 4 mg PO Q8HR PRN #10 tab 04/20/19 Allergies Allergy/AdvReac Type Severity Reaction Status Date / Time No Known Allergies Allergy Verified 04/19/19 23:55 Review of Systems ROS Statement: Those systems with pertinent positive or pertinent negative responses have been documented in the HPI. ROS Other: All systems not noted in ROS Statement are negative. Past Medical History Past Medical History: Asthma Additional Past Medical History / Comment(s): chronic back pain, History of Any Multi-Drug Resistant Organisms: None Reported Past Surgical History: Section, Uterine Ablation Additional Past Surgical History / Comment(s): ganglion cyst right foot, Past Anesthesia/Blood Transfusion Reactions: No Reported Reaction Past Psychological History: ADD/ADHD, Anxiety Smoking Status: Current every day smoker Past Alcohol Use History: None Reported Past Drug Use History: Marijuana - Past Family History Sister(s) Family Medical History: Cancer, Diabetes Mellitus Additional Family Medical History / Comment(s): Diabetes type 1, cervical and pancreatic cancer Mother Family Medical History: Myocardial Infarction ([place]) Additional Family Medical History / Comment(s): Bipolar General Exam Limitations: no limitations General appearance: alert, in no apparent distress, other (Physical well- developed, well-nourished adult female patient in no acute distress. Vital signs upon presentation are temperature 98.1F, pulse 90, respirations 18, blood pressure 130/103, pulse ox 100% on room air) Eye exam: Present: normal appearance, PERRL, EOMI. Absent: scleral icterus, conjunctival injection, periorbital swelling ENT exam: Present: normal exam, normal oropharynx, mucous membranes moist Respiratory exam: Present: normal lung sounds bilaterally. Absent: respiratory distress, wheezes, rales, rhonchi, stridor Cardiovascular Exam: Present: regular rate, normal rhythm, normal heart sounds. Absent: systolic murmur, diastolic murmur, rubs, gallop, clicks GI/Abdominal exam: Present: soft, tenderness (Generalized), normal bowel sounds. Absent: distended, guarding, rebound, rigid Back exam: Present: CVA tenderness (R), CVA tenderness (L) Neurological exam: Present: alert, oriented X3, CN II-XII intact Psychiatric exam: Present: normal affect, normal mood Skin exam: Present: warm, dry, intact, normal color. Absent: rash Course Vital Signs 04/19/19 04/20/19 23:52 02:43 Temperature 98.1 F Pulse Rate 90 79 Respiratory 18 18 Rate Blood Pressure 130/103 103/57 O2 Sat by Pulse 100 100 Oximetry Medical Decision Making - Medical Decision Making 33-year-old female patient presented to the emergency department today for evaluation of abdominal back pain. Physical examination did reveal bilateral CVA tenderness. Mildly tender abdomen. Labs reviewed and were unremarkable. KUB x-ray of the abdomen was obtained and was unremarkable. Reports were obtained from [facility] visit from 04/03/2019 which showed possible enteritis. Currently patient is afebrile. Vital signs are normal. Given these findings and patient's symptoms we will treat for enteritis with Bentyl and Zofran. She will be given a starter pack for Tylenol codeine for pain relief. She is instructed to follow-up with her primary care physician for recheck in 1-2 days. Return parameters were discussed in detail. She verbalizes understanding and agrees with this plan. - Lab Data Result diagrams: 04/20/19 00:34 04/20/19 00:34 Lab Results 04/20/19 04/20/19 04/20/19 Range/Units 00:34 00:34 00:34 WBC 7.9 (3.8-10.6) k/uL RBC 4.42 (3.80-5.40) m/uL Hgb 13.5 (11.4-16.0) gm/dL Hct 39.6 (34.0-46.0) % MCV 89.7 (80.0-100.0) fL MCH 30.5 (25.0-35.0) pg MCHC 34.0 (31.0-37.0) g/dL RDW 12.5 (11.5-15.5) % Plt Count 218 (150-450) k/uL Neutrophils % 51 % Lymphocytes % 39 % Monocytes % 5 % Eosinophils % 3 % Basophils % 1 % Neutrophils # 4.0 (1.3-7.7) k/uL Lymphocytes # 3.1 (1.0-4.8) k/uL Monocytes # 0.4 (0-1.0) k/uL Eosinophils # 0.3 (0-0.7) k/uL Basophils # 0.1 (0-0.2) k/uL Sodium 137 (137-145) mmol/L Potassium 4.2 (3.5-5.1) mmol/L Chloride 107 (98-107) mmol/L Carbon Dioxide 22 (22-30) mmol/L Anion Gap 8 mmol/L BUN 15 (7-17) mg/dL Creatinine 0.65 (0.52-1.04) mg/dL Est GFR (CKD-EPI)AfAm >90 (>60 ml/min/1.73 sqM) Est GFR (CKD-EPI)NonAf >90 (>60 ml/min/1.73 sqM) Glucose 107 H (74-99) mg/dL Calcium 9.2 (8.4-10.2) mg/dL Total Bilirubin 0.3 (0.2-1.3) mg/dL AST 20 (14-36) U/L ALT 16 (9-52) U/L Alkaline Phosphatase 41 (38-126) U/L Total Protein 6.6 (6.3-8.2) g/dL Albumin 4.0 (3.5-5.0) g/dL Amylase 62 (30-110) U/L Lipase 124 (23-300) U/L Urine Color Yellow Urine Appearance Clear (Clear) Urine pH 6.0 (5.0-8.0) Ur Specific [place] 1.032 (1.001-1.035) Urine Protein Trace H (Negative) Urine Glucose (UA) Negative (Negative) Urine Ketones Negative (Negative) Urine Blood Negative (Negative) Urine Nitrite Negative (Negative) Urine Bilirubin Negative (Negative) Urine Urobilinogen 2.0 (<2.0) mg/dL Ur Leukocyte Esterase Negative (Negative) - Radiology Data Radiology results: report reviewed, image reviewed Two-view x-ray of the abdomen is obtained. Report was reviewed in its entirety. Impression by Dr. Acosta shows no radiographic findings of acute abdominal process. Disposition Clinical Impression: Abdominal pain Disposition: HOME SELF-CARE Condition: Good Instructions (If sedation given, give patient instructions): Abdominal Pain (ED) Additional Instructions: Take medication as directed. Follow up with your primary care physician for recheck in 1-2 days. Return to the emergency department for any new, worsening, or concerning symptoms. Prescriptions: Dicyclomine [Bentyl] 20 mg PO QID #12 tablet Ondansetron [Zofran ODT] 4 mg PO Q8HR PRN #10 tab PRN Reason: Nausea Is patient prescribed a controlled substance at d/c from ED?: No Referrals: Sasha Barahona MD [Primary Care Provider] - 1-2 days Time of Disposition: 03:24
[2019-04-20 02:44] VITALS: BP 103/57; PULSE 79
[2019-04-20] MEDS ORDERED: ACET/COD 300 MG/30 MG STARTER PACK 6 TAB BTL PO STA (03:23)
== END 2019-04-20 03:45 | disposition home or self-care (01) ==
LOC: EC 23:48
DX: R10.9 Unspecified abdominal pain (principal); M54.9 Dorsalgia, unspecified; R39.15 Urgency of urination; R35.0 Frequency of micturition; R10.817 Generalized abdominal tenderness; F17.200 Nicotine dependence, unspecified, uncomplicated
CPT/HCPCS: 36415; 80053; 82150; 83690; 85025; 81003; 74018; 99284; 96374; 96375 ×2; 96361 ×3; J2270; J2405; J1885